=== PATIENT | male | born 1955 | race Two or more races ===

== ENCOUNTER 2021-02-16 13:01 | Inpatient (IN) | payer MEDICARE, OTHER ==
[~2021-02-16] VITALS: Ht 182.9 cm; Wt 104.0 kg
[2021-02-16] MEDS ORDERED: CHOLECALCIFEROL (VITD3) 2,000 UNIT CAP/TAB PO ONE (13:15)
[2021-02-16] MEDS ORDERED: ZINC SULFATE 220mg CAP or TAB PO ONE (13:15)
[2021-02-16] MEDS ORDERED: AZITHROMYCIN 500MG/ 250ML 250 ML IV ONE (13:15)
[2021-02-16] MEDS ORDERED: REMDESIVIR PER PHARMACY 0 ML IV SCH ×2 (13:15→20:00)
[2021-02-16] MEDS ORDERED: methylPREDNISolone SOD SUCC 125 MG/2 ML VL IV ONE (13:15)
[2021-02-16] MEDS ORDERED: ASCORBIC ACID 500 MG TAB PO ONE (13:15)
[2021-02-16 14:07] LABS: Basophils # (auto) 0 10 ^3/uL (0-0.2); Basophils % (auto) 0.6 % (0.0-2.0); Eosinophils # (auto) 0 10 ^3/uL (0-0.8); Hematocrit 41.8 % (41.0-53.0); Lymphocytes # (auto) 0.6 10 ^3/uL (0.4-5.4); Lymphocytes % (auto) 11.7 % (10.0-50.0); Mean Corpuscular Hemoglobin 32.6 pg (28.0-32.0); Mean Corpuscular Hgb Conc. 35.9 g/dL (32.0-36.0); Mean Corpuscular Volume 90.8 fL (80.0-100.0); Monocytes # (auto) 0.3 10 ^3/uL (0-1.3); Monocytes % (auto) 6.2 % (0.0-12.0); Neutrophils # (auto) 3.9 10 ^3/uL (1.6-8.6); Neutrophils % (auto) 81.5 % (37.0-80.0); Nucleated Red Blood Cells % 0.1 %; Red Cell Distribution Width 12.7 % (11.8-14.3); White Blood Cell 4.8 10^3/uL (4.4-10.8)
[2021-02-16 14:16] LABS: Albumin 3.3 g/dL (3.4-5.0); Calcium 8.4 mg/dL (8.5-10.1); Magnesium 2.7 mg/dL (1.6-2.6); Potassium 3.5 mmol/L (3.5-5.1)
[2021-02-16 14:22] LABS: BUN/Creatinine Ratio 16.8; Bilirubin, Total 0.6 mg/dL (0.2-1.0); CRP High Sensitivity 8.48 mg/dL (< 0.3); Total Protein 7.4 g/dL (6.4-8.2)
[2021-02-16] MEDS ORDERED: SODIUM CHLORIDE 0.9% 1,000 ML IV ONE ×2 (16:30→19:45)
[2021-02-16] MEDS ORDERED: NITROGLYCERIN 0.4 MG SL TAB SL PRN ×2 (17:45→20:00)
[2021-02-16] MEDS ORDERED: MORPHINE SULFATE INJECTION 2 MG/ML SYRG IV PRN ×3 (17:45→20:00)
[2021-02-16] MEDS ORDERED: AMLO-496 PO (18:12)
[2021-02-16] MEDS ORDERED: ASCO500T11 PO (18:12)
[2021-02-16] MEDS ORDERED: LISI-285 PO (18:12)
[2021-02-16] MEDS ORDERED: CHOL20007 PO (18:12)
[2021-02-16] MEDS ORDERED: ZINC220C8 PO (18:12)
[2021-02-16] MEDS ORDERED: ACETAMINOPHEN 325 MG TAB PO ONE ×2 (18:54→19:00)
[2021-02-16] MEDS ORDERED: hydrALAZINE HCL 20 MG/ML VL IV PRN (19:45)
[2021-02-16] MEDS ORDERED: ALBUMIN 25% 100 ML IV ONE (19:45)
[2021-02-16] MEDS ORDERED: FAMOTIDINE (10MG/ML) 2ML VL IV ONE (19:45)
[2021-02-16] MEDS ORDERED: METOCLOPRAMIDE HCL 5MG/ml INJ 2ml VIAL IV PRN (20:00)
[2021-02-16] MEDS ORDERED: DOCUSATE SOD 100 MG CAP PO PRN (20:00)
[2021-02-16] MEDS ORDERED: ALUM & MAG HYDROX-SIMETH LIQ(MAALOX) 30 ML PO PRN (20:00)
[2021-02-16 20:21] VITALS: BP 115/90
[2021-02-16 22:00] VITALS: BP 115/90
[2021-02-16] MEDS: BUDESONIDE (INHALATION) 180 MCG IH IN SCH (22:00)
[2021-02-16] MEDS: POTASSIUM CHL 20 Meq TABLET PO SCH (22:30)
[2021-02-16] MEDS: DOXYCYCLINE 100MG/250ML 250 ML IV SCH (22:30)
[2021-02-16] MEDS: ATORVASTATIN 20 MG TAB PO SCH (22:30)
[2021-02-16] MEDS: ENOXAPARIN SOD 40 MG/0.4 ML SYRINGE SC SCH (22:31)
[2021-02-16] MEDS: HYDROcodone-ACET 5/325MG TAB PO PRN (22:31)
[2021-02-17 00:11] LABS: Basophils # (auto) 0 10 ^3/uL (0-0.2); Basophils % (auto) 0.1 % (0.0-2.0); Eosinophils # (auto) 0 10 ^3/uL (0-0.8); Hematocrit 35.4 % (41.0-53.0); Hemoglobin 12.5 g/dL (13.5-17.5); Lymphocytes # (auto) 0.4 10 ^3/uL (0.4-5.4); Lymphocytes % (auto) 15.3 % (10.0-50.0); Mean Corpuscular Hemoglobin 32.3 pg (28.0-32.0); Mean Corpuscular Hgb Conc. 35.5 g/dL (32.0-36.0); Monocytes # (auto) 0.1 10 ^3/uL (0-1.3); Monocytes % (auto) 3.3 % (0.0-12.0); Neutrophils # (auto) 2.1 10 ^3/uL (1.6-8.6); Neutrophils % (auto) 81.3 % (37.0-80.0); Nucleated Red Blood Cells % 0.2 %; Red Blood Cells 3.89 10^6/uL (4.5-5.90); Red Cell Distribution Width 12.7 % (11.8-14.3); White Blood Cell 2.6 10^3/uL (4.4-10.8)
[2021-02-17 00:22] LABS: Albumin 3.4 g/dL (3.4-5.0); Calcium 7.9 mg/dL (8.5-10.1); Magnesium 2.8 mg/dL (1.6-2.6); Potassium 3.2 mmol/L (3.5-5.1)
[2021-02-17 00:26] LABS: Lactic Acid w/Reflex 2.8 mmol/L (0.4-2.0)
[2021-02-17 00:34] LABS: Thyroid Stimulating Hormone 0.63 uIU/mL (0.358-3.74)
[2021-02-17 01:17] LABS: BUN/Creatinine Ratio 20.2; Bilirubin, Total 0.6 mg/dL (0.2-1.0); CRP High Sensitivity 6.5 mg/dL (< 0.3); Total Protein 6.7 g/dL (6.4-8.2)
[2021-02-17 01:44] LABS: Triglycerides 90 mg/dL (< 150)
[2021-02-17 01:53] LABS: Cholesterol 105 mg/dL (< 200); HDL Cholesterol 27 mg/dL (40-59); LDL Cholesterol 54 mg/dL (< 100)
[2021-02-17 05:00] VITALS: BP 130/85
[2021-02-17] MEDS: FUROSEMIDE 20 MG/2 ML VIAL IV SCH ×2 (05:51→18:10)
[2021-02-17 06:16] LABS: Basophils # (auto) 0 10 ^3/uL (0-0.2); Basophils % (auto) 0.3 % (0.0-2.0); Eosinophils # (auto) 0 10 ^3/uL (0-0.8); Hematocrit 34.7 % (41.0-53.0); Hemoglobin 12.6 g/dL (13.5-17.5); Lymphocytes # (auto) 0.5 10 ^3/uL (0.4-5.4); Lymphocytes % (auto) 16.7 % (10.0-50.0); Mean Corpuscular Hemoglobin 32.8 pg (28.0-32.0); Mean Corpuscular Hgb Conc. 36.3 g/dL (32.0-36.0); Mean Corpuscular Volume 90.3 fL (80.0-100.0); Monocytes # (auto) 0.2 10 ^3/uL (0-1.3); Monocytes % (auto) 5.8 % (0.0-12.0); Neutrophils # (auto) 2.3 10 ^3/uL (1.6-8.6); Neutrophils % (auto) 77.2 % (37.0-80.0); Nucleated Red Blood Cells % 0.1 %; Red Blood Cells 3.84 10^6/uL (4.5-5.90); Red Cell Distribution Width 12.7 % (11.8-14.3)
[2021-02-17 06:30] LABS: INR 0.99 (0.9-1.15)
[2021-02-17 06:31] LABS: Potassium 3.4 mmol/L (3.5-5.1)
[2021-02-17 06:58] LABS: Albumin 3.2 g/dL (3.4-5.0); BUN/Creatinine Ratio 20.5; Bilirubin, Total 0.5 mg/dL (0.2-1.0); Magnesium 2.8 mg/dL (1.6-2.6); Phosphorus 2.7 mg/dL (2.5-4.90); Total Protein 6.6 g/dL (6.4-8.2); Uric Acid 5.7 mg/dL (3.5-7.2)
[2021-02-17] MEDS: BUDESONIDE (INHALATION) 180 MCG IH IN SCH ×2 (08:34→20:05)
[2021-02-17 08:39] VITALS: BP 112/77
[2021-02-17] MEDS: DexAMETHasone SOD PHOS 10MG/1ML VIAL INJ IV SCH (09:00)
[2021-02-17] MEDS: ZINC SULFATE 220mg CAP or TAB PO SCH (09:02)
[2021-02-17] MEDS: ASPirin 81 mg TAB PO SCH (09:02)
[2021-02-17] MEDS: DOXYCYCLINE 100MG/250ML 250 ML IV SCH ×2 (09:02→21:51)
[2021-02-17] MEDS: POTASSIUM CHL 20 Meq TABLET PO SCH ×2 (09:03→21:50)
[2021-02-17] MEDS: ENOXAPARIN SOD 40 MG/0.4 ML SYRINGE SC SCH ×2 (09:03→21:51)
[2021-02-17] MEDS: ASCORBIC ACID 1,000 MG TAB PO SCH (09:03)
[2021-02-17] MEDS: IVERMECTIN 3 MG TAB PO SCH (09:03)
[2021-02-17] MEDS: CHOLECALCIFEROL (VITD3) 2,000 UNIT CAP/TAB PO SCH (09:03)
[2021-02-17] MEDS: HYDROcodone-ACET 5/325MG TAB PO PRN ×3 (09:32→20:00)
[2021-02-17] MEDS ORDERED: FAMOTIDINE (10MG/ML) 2ML VL IV SCH (10:00)
[2021-02-17 12:47] VITALS: BP 118/76
[2021-02-17] MEDS ORDERED: MORPHINE SULFATE INJECTION 2 MG/ML SYRG IV PRN (14:30)
[2021-02-17] MEDS ORDERED: REMDESIVIR 200 MG in NS 210ml LOADING DOSE ADULT IV ONE (15:00)
[2021-02-17 16:53] VITALS: BP 117/77
[2021-02-17] MEDS: guaiFENesin-DM 100/10mg/5ml SYR PO PRN (20:01)
[2021-02-17] MEDS: ALBUTEROL SULF HFA 90MCG INH 200DOSE IN PRN (20:05)
[2021-02-17] MEDS: ATORVASTATIN 20 MG TAB PO SCH (21:51)
[2021-02-17 22:00] VITALS: BP 113/75
[2021-02-18 05:14] VITALS: BP 129/87
[2021-02-18] MEDS: FUROSEMIDE 20 MG/2 ML VIAL IV SCH ×2 (05:50→18:25)
[2021-02-18] MEDS: BUDESONIDE (INHALATION) 180 MCG IH IN SCH ×2 (06:30→21:01)
[2021-02-18] MEDS: ALBUTEROL SULF HFA 90MCG INH 200DOSE IN PRN ×2 (06:31→21:02)
[2021-02-18 06:52] LABS: Basophils # (auto) 0 10 ^3/uL (0-0.2); Basophils % (auto) 0.1 % (0.0-2.0); Eosinophils # (auto) 0 10 ^3/uL (0-0.8); Hematocrit 36.8 % (41.0-53.0); Hemoglobin 13.4 g/dL (13.5-17.5); Lymphocytes # (auto) 0.7 10 ^3/uL (0.4-5.4); Lymphocytes % (auto) 9.3 % (10.0-50.0); Mean Corpuscular Hemoglobin 32.9 pg (28.0-32.0); Mean Corpuscular Volume 90.1 fL (80.0-100.0); Monocytes # (auto) 0.4 10 ^3/uL (0-1.3); Monocytes % (auto) 4.8 % (0.0-12.0); Neutrophils # (auto) 6.9 10 ^3/uL (1.6-8.6); Neutrophils % (auto) 85.8 % (37.0-80.0); Red Blood Cells 4.08 10^6/uL (4.5-5.90); Red Cell Distribution Width 12.7 % (11.8-14.3)
[2021-02-18 07:04] LABS: Mean Corpuscular Hgb Conc. 36.5 g/dL (32.0-36.0)
[2021-02-18 07:16] LABS: Albumin 3.2 g/dL (3.4-5.0); Calcium 8.1 mg/dL (8.5-10.1); Potassium 3.6 mmol/L (3.5-5.1)
[2021-02-18 07:20] LABS: BUN/Creatinine Ratio 24.3; Bilirubin, Total 0.6 mg/dL (0.2-1.0); Total Protein 6.4 g/dL (6.4-8.2)
[2021-02-18] MEDS: HYDROcodone-ACET 5/325MG TAB PO PRN ×3 (07:42→21:08)
[2021-02-18 08:00] VITALS: BP 104/61
[2021-02-18] MEDS: DexAMETHasone SOD PHOS 10MG/1ML VIAL INJ IV SCH (10:02)
[2021-02-18] MEDS: DOXYCYCLINE 100MG/250ML 250 ML IV SCH ×2 (10:02→21:04)
[2021-02-18] MEDS: IVERMECTIN 3 MG TAB PO SCH (10:03)
[2021-02-18] MEDS: ASCORBIC ACID 1,000 MG TAB PO SCH (10:03)
[2021-02-18] MEDS: ZINC SULFATE 220mg CAP or TAB PO SCH (10:03)
[2021-02-18] MEDS: ASPirin 81 mg TAB PO SCH (10:03)
[2021-02-18] MEDS: POTASSIUM CHL 20 Meq TABLET PO SCH ×2 (10:03→21:05)
[2021-02-18] MEDS: CHOLECALCIFEROL (VITD3) 2,000 UNIT CAP/TAB PO SCH (10:04)
[2021-02-18] MEDS: ENOXAPARIN SOD 40 MG/0.4 ML SYRINGE SC SCH ×2 (10:04→21:05)
[2021-02-18 10:48] VITALS: BP 104/61
[2021-02-18 12:00] VITALS: BP 134/62
[2021-02-18] MEDS: guaiFENesin-DM 100/10mg/5ml SYR PO PRN (12:06)
[2021-02-18] MEDS ORDERED: THROAT LOZENGES(CEPASTAT) MT PRN (13:00)
[2021-02-18] MEDS: REMDESIVIR 100mg 100 MG in SODIUM CHL 0.9% 230 ML IV SCH (14:27)
[2021-02-18 16:00] VITALS: BP 122/88
[2021-02-18] MEDS: ATORVASTATIN 20 MG TAB PO SCH (21:05)
[2021-02-18 22:00] VITALS: BP 108/75
[2021-02-18] MEDS: LORazepam 0.5 MG TAB PO PRN (23:20)
[2021-02-19] MEDS: guaiFENesin-DM 100/10mg/5ml SYR PO PRN (02:55)
[2021-02-19 04:49] LABS: Alcohol, Urine < 3.0 mg/dL (0-10); Amphetamine Screen, Urine NEGATIVE (NEGATIVE); Barbiturate Scree,Urine NEGATIVE (NEGATIVE); Benzodiazephine Screen, Urine NEGATIVE (NEGATIVE); Cannabinoid Screen, Urine NEGATIVE (NEGATIVE); Cocaine Screen, Urine NEGATIVE (NEGATIVE); Opiate Scree,Urine POSITIVE (NEGATIVE); Phencyclidine Screen, Urine NEGATIVE (NEGATIVE)
[2021-02-19 05:00] VITALS: BP 117/80
[2021-02-19] MEDS: FUROSEMIDE 20 MG/2 ML VIAL IV SCH ×3 (05:17→17:49)
[2021-02-19 06:10] LABS: Urine Bacteria NONE SEEN /hpf (None Seen); Urine Blood Negative /uL (Negative); Urine Specific Gravity 1.016 (1.001-1.035); Urine WBC 1 /hpf (0 - 3)
[2021-02-19 06:54] LABS: Basophils # (auto) 0 10 ^3/uL (0-0.2); Basophils % (auto) 0.2 % (0.0-2.0); Eosinophils # (auto) 0 10 ^3/uL (0-0.8); Monocytes # (auto) 0.5 10 ^3/uL (0-1.3); White Blood Cell 8.3 10^3/uL (4.4-10.8)
[2021-02-19 06:58] LABS: Hematocrit 35.8 % (41.0-53.0); Hemoglobin 13.2 g/dL (13.5-17.5); Lymphocytes # (auto) 0.7 10 ^3/uL (0.4-5.4); Lymphocytes % (auto) 8.9 % (10.0-50.0); Mean Corpuscular Hemoglobin 33.2 pg (28.0-32.0); Mean Corpuscular Volume 90.3 fL (80.0-100.0); Neutrophils # (auto) 7.1 10 ^3/uL (1.6-8.6); Neutrophils % (auto) 84.9 % (37.0-80.0); Nucleated Red Blood Cells % 0.1 %; Red Blood Cells 3.97 10^6/uL (4.5-5.90); Red Cell Distribution Width 12.5 % (11.8-14.3)
[2021-02-19 06:59] LABS: Albumin 3.1 g/dL (3.4-5.0); BUN/Creatinine Ratio 26.3; Bilirubin, Total 0.6 mg/dL (0.2-1.0); Calcium 7.9 mg/dL (8.5-10.1); Total Protein 6.2 g/dL (6.4-8.2)
[2021-02-19 07:06] LABS: Mean Corpuscular Hgb Conc. 36.8 g/dL (32.0-36.0)
[2021-02-19] MEDS: BUDESONIDE (INHALATION) 180 MCG IH IN SCH ×2 (07:48→19:25)
[2021-02-19] MEDS: DexAMETHasone SOD PHOS 10MG/1ML VIAL INJ IV SCH (08:02)
[2021-02-19] MEDS: ASCORBIC ACID 1,000 MG TAB PO SCH (08:03)
[2021-02-19] MEDS: IVERMECTIN 3 MG TAB PO SCH (08:03)
[2021-02-19] MEDS: ZINC SULFATE 220mg CAP or TAB PO SCH (08:03)
[2021-02-19] MEDS: ASPirin 81 mg TAB PO SCH (08:03)
[2021-02-19] MEDS: DOXYCYCLINE 100MG/250ML 250 ML IV SCH ×2 (08:03→23:07)
[2021-02-19] MEDS: CHOLECALCIFEROL (VITD3) 2,000 UNIT CAP/TAB PO SCH (08:03)
[2021-02-19] MEDS: POTASSIUM CHL 20 Meq TABLET PO SCH ×2 (08:03→22:04)
[2021-02-19] MEDS: HYDROcodone-ACET 5/325MG TAB PO PRN ×2 (08:04→22:20)
[2021-02-19] MEDS: ENOXAPARIN SOD 40 MG/0.4 ML SYRINGE SC SCH ×2 (08:04→22:09)
[2021-02-19 08:46] VITALS: BP 123/78
[2021-02-19] MEDS ORDERED: PROPRANOLOL HCL 20 MG TAB PO ONE (11:45)
[2021-02-19 13:00] VITALS: BP 114/77
[2021-02-19] MEDS: Ensure HIGH Protein Chocolate 8oz Bottle PO SCH ×2 (13:14→17:49)
[2021-02-19 15:19] LABS: Hepatitis A Ab IgM Negative; Hepatitis B Core IgM Negative; Hepatitis C Antibody Negative (Negative)
[2021-02-19] MEDS: REMDESIVIR 100mg 100 MG in SODIUM CHL 0.9% 230 ML IV SCH (15:26)
[2021-02-19 17:00] VITALS: BP 101/70
[2021-02-19] MEDS: SALINE 0.65 % NASAL SPRAY 45ML BOTTLE EACHNOSTRI SCH ×2 (17:49→22:03)
[2021-02-19] MEDS: ALBUTEROL SULF HFA 90MCG INH 200DOSE IN PRN (19:25)
[2021-02-19 22:00] VITALS: BP 129/64
[2021-02-19] MEDS: PROPRANOLOL HCL 20 MG TAB PO SCH (22:03)
[2021-02-19] MEDS: ATORVASTATIN 20 MG TAB PO SCH (22:04)
[2021-02-19] MEDS: TEMAZEPAM 15 MG CAP PO PRN (23:41)
[2021-02-20 05:17] VITALS: BP 105/83
[2021-02-20 05:28] LABS: Basophils # (auto) 0 10 ^3/uL (0-0.2); Eosinophils # (auto) 0 10 ^3/uL (0-0.8); Hemoglobin 13.1 g/dL (13.5-17.5); Lymphocytes # (auto) 0.8 10 ^3/uL (0.4-5.4); Lymphocytes % (auto) 9.1 % (10.0-50.0); Mean Corpuscular Hemoglobin 32.5 pg (28.0-32.0); Mean Corpuscular Hgb Conc. 35.3 g/dL (32.0-36.0); Mean Corpuscular Volume 92.3 fL (80.0-100.0); Monocytes # (auto) 0.4 10 ^3/uL (0-1.3); Monocytes % (auto) 4.2 % (0.0-12.0); Neutrophils % (auto) 86.7 % (37.0-80.0); Nucleated Red Blood Cells % 0.1 %; Red Blood Cells 4.01 10^6/uL (4.5-5.90); Red Cell Distribution Width 12.6 % (11.8-14.3); White Blood Cell 9.2 10^3/uL (4.4-10.8)
[2021-02-20] MEDS: ALBUTEROL SULF HFA 90MCG INH 200DOSE IN PRN (05:48)
[2021-02-20] MEDS: BUDESONIDE (INHALATION) 180 MCG IH IN SCH ×2 (05:48→21:50)
[2021-02-20 05:52] LABS: Potassium 4.1 mmol/L (3.5-5.1)
[2021-02-20 06:02] LABS: Albumin 2.8 g/dL (3.4-5.0); BUN/Creatinine Ratio 29.3; Bilirubin, Total 0.7 mg/dL (0.2-1.0); Calcium 8.2 mg/dL (8.5-10.1); Total Protein 5.7 g/dL (6.4-8.2)
[2021-02-20] MEDS: SALINE 0.65 % NASAL SPRAY 45ML BOTTLE EACHNOSTRI SCH ×4 (06:14→21:59)
[2021-02-20] MEDS: FUROSEMIDE 20 MG/2 ML VIAL IV SCH ×2 (06:20→18:23)
[2021-02-20] MEDS: Ensure HIGH Protein Chocolate 8oz Bottle PO SCH ×3 (08:00→18:23)
[2021-02-20 08:52] VITALS: BP 125/86
[2021-02-20] MEDS: PROPRANOLOL HCL 20 MG TAB PO SCH ×2 (10:00→21:54)
[2021-02-20] MEDS ORDERED: AZITHROMYCIN 500MG/ 250ML 250 ML IV ONE (11:00)
[2021-02-20] MEDS ORDERED: ALBUMIN 25% 50 ML IV ONE (11:00)
[2021-02-20] MEDS: DexAMETHasone SOD PHOS 10MG/1ML VIAL INJ IV SCH (11:10)
[2021-02-20] MEDS: ASPirin 81 mg TAB PO SCH (11:10)
[2021-02-20] MEDS: ZINC SULFATE 220mg CAP or TAB PO SCH (11:10)
[2021-02-20] MEDS: IVERMECTIN 3 MG TAB PO SCH (11:11)
[2021-02-20] MEDS: POTASSIUM CHL 20 Meq TABLET PO SCH ×2 (11:11→21:59)
[2021-02-20] MEDS: CHOLECALCIFEROL (VITD3) 2,000 UNIT CAP/TAB PO SCH (11:12)
[2021-02-20] MEDS: ASCORBIC ACID 1,000 MG TAB PO SCH (11:12)
[2021-02-20] MEDS: ENOXAPARIN SOD 40 MG/0.4 ML SYRINGE SC SCH ×2 (11:13→22:00)
[2021-02-20 13:00] VITALS: BP 117/59
[2021-02-20] MEDS: REMDESIVIR 100mg 100 MG in SODIUM CHL 0.9% 230 ML IV SCH (15:35)
[2021-02-20 17:00] VITALS: BP 128/92
[2021-02-20] MEDS: ALBUMIN 25% 50 ML IV SCH (18:24)
[2021-02-20] MEDS: guaiFENesin-DM 100/10mg/5ml SYR PO PRN (19:54)
[2021-02-20 22:00] VITALS: BP 102/68
[2021-02-20] MEDS: TEMAZEPAM 15 MG CAP PO PRN (22:00)
[2021-02-20] MEDS: ATORVASTATIN 20 MG TAB PO SCH (22:00)
[2021-02-21] MEDS: ALBUMIN 25% 50 ML IV SCH ×2 (04:10→12:29)
[2021-02-21] MEDS: HYDROcodone-ACET 5/325MG TAB PO PRN (04:18)
[2021-02-21 05:00] VITALS: BP 127/82
[2021-02-21] MEDS: SALINE 0.65 % NASAL SPRAY 45ML BOTTLE EACHNOSTRI SCH ×4 (06:20→22:00)
[2021-02-21] MEDS: BUDESONIDE (INHALATION) 180 MCG IH IN SCH ×2 (06:25→22:00)
[2021-02-21] MEDS: ALBUTEROL SULF HFA 90MCG INH 200DOSE IN PRN (06:25)
[2021-02-21 06:26] LABS: Basophils # (auto) 0 10 ^3/uL (0-0.2); Basophils % (auto) 0.2 % (0.0-2.0); Eosinophils # (auto) 0 10 ^3/uL (0-0.8); Hematocrit 36.2 % (41.0-53.0); Hemoglobin 13.1 g/dL (13.5-17.5); Lymphocytes # (auto) 0.9 10 ^3/uL (0.4-5.4); Lymphocytes % (auto) 8.4 % (10.0-50.0); Mean Corpuscular Hemoglobin 32.9 pg (28.0-32.0); Mean Corpuscular Hgb Conc. 36.1 g/dL (32.0-36.0); Mean Corpuscular Volume 91.1 fL (80.0-100.0); Monocytes # (auto) 0.3 10 ^3/uL (0-1.3); Monocytes % (auto) 3.1 % (0.0-12.0); Neutrophils # (auto) 9.6 10 ^3/uL (1.6-8.6); Neutrophils % (auto) 88.3 % (37.0-80.0); Red Blood Cells 3.97 10^6/uL (4.5-5.90); Red Cell Distribution Width 13.1 % (11.8-14.3); White Blood Cell 10.9 10^3/uL (4.4-10.8)
[2021-02-21] MEDS: FUROSEMIDE 20 MG/2 ML VIAL IV SCH ×2 (06:29→17:34)
[2021-02-21 06:37] LABS: Potassium 3.7 mmol/L (3.5-5.1)
[2021-02-21 06:38] LABS: Albumin 3.4 g/dL (3.4-5.0); Calcium 8.5 mg/dL (8.5-10.1); INR 1.12 (0.9-1.15)
[2021-02-21 06:44] LABS: BUN/Creatinine Ratio 31.6; Bilirubin, Total 1.2 mg/dL (0.2-1.0); Total Protein 6.7 g/dL (6.4-8.2)
[2021-02-21 09:00] VITALS: BP 119/75
[2021-02-21] MEDS: ASPirin 81 mg TAB PO SCH (10:41)
[2021-02-21] MEDS: Ensure HIGH Protein Chocolate 8oz Bottle PO SCH ×3 (10:41→17:34)
[2021-02-21] MEDS: AZITHROMYCIN 500MG/ 250ML 250 ML IV SCH (10:41)
[2021-02-21] MEDS: ZINC SULFATE 220mg CAP or TAB PO SCH (10:42)
[2021-02-21] MEDS: PROPRANOLOL HCL 20 MG TAB PO SCH ×2 (10:42→22:30)
[2021-02-21] MEDS: DexAMETHasone SOD PHOS 10MG/1ML VIAL INJ IV SCH (10:42)
[2021-02-21] MEDS: POTASSIUM CHL 20 Meq TABLET PO SCH (10:42)
[2021-02-21] MEDS: ENOXAPARIN SOD 40 MG/0.4 ML SYRINGE SC SCH ×2 (10:43→22:00)
[2021-02-21] MEDS: IVERMECTIN 3 MG TAB PO SCH (10:43)
[2021-02-21] MEDS: ASCORBIC ACID 1,000 MG TAB PO SCH (10:43)
[2021-02-21] MEDS: CHOLECALCIFEROL (VITD3) 2,000 UNIT CAP/TAB PO SCH (10:43)
[2021-02-21] MEDS ORDERED: cefTRIAXone 1GM/50ML D5W 50 ML IV ONE (12:15)
[2021-02-21 13:00] VITALS: BP 119/72
[2021-02-21] MEDS: REMDESIVIR 100mg 100 MG in SODIUM CHL 0.9% 230 ML IV SCH (15:26)
[2021-02-21 17:00] VITALS: BP 104/61
[2021-02-21 20:00] VITALS: BP 130/81
[2021-02-21 22:00] VITALS: BP 130/85
[2021-02-21] MEDS: ATORVASTATIN 20 MG TAB PO SCH (22:00)
[2021-02-21] MEDS: TEMAZEPAM 15 MG CAP PO PRN (22:37)
[2021-02-22] MEDS: HYDROcodone-ACET 5/325MG TAB PO PRN ×3 (01:51→16:47)
[2021-02-22] MEDS: ALBUTEROL SULF HFA 90MCG INH 200DOSE IN PRN ×3 (04:49→21:44)
[2021-02-22 05:00] VITALS: BP 131/76
[2021-02-22] MEDS: SALINE 0.65 % NASAL SPRAY 45ML BOTTLE EACHNOSTRI SCH ×4 (05:54→22:31)
[2021-02-22] MEDS: FUROSEMIDE 20 MG/2 ML VIAL IV SCH ×2 (05:56→16:57)
[2021-02-22] MEDS: BUDESONIDE (INHALATION) 180 MCG IH IN SCH ×2 (06:03→21:43)
[2021-02-22 06:56] LABS: Basophils # (auto) 0.1 10 ^3/uL (0-0.2); Basophils % (auto) 0.3 % (0.0-2.0); Eosinophils # (auto) 0.1 10 ^3/uL (0-0.8); Eosinophils % (auto) 0.4 % (0.0-7.0); Hematocrit 39.4 % (41.0-53.0); Hemoglobin 13.7 g/dL (13.5-17.5); Lymphocytes # (auto) 0.9 10 ^3/uL (0.4-5.4); Lymphocytes % (auto) 5.3 % (10.0-50.0); Mean Corpuscular Hemoglobin 32.4 pg (28.0-32.0); Mean Corpuscular Hgb Conc. 34.6 g/dL (32.0-36.0); Mean Corpuscular Volume 93.5 fL (80.0-100.0); Monocytes # (auto) 0.4 10 ^3/uL (0-1.3); Monocytes % (auto) 2.4 % (0.0-12.0); Neutrophils # (auto) 16.2 10 ^3/uL (1.6-8.6); Neutrophils % (auto) 91.6 % (37.0-80.0); Red Blood Cells 4.21 10^6/uL (4.5-5.90); Red Cell Distribution Width 12.9 % (11.8-14.3); White Blood Cell 17.7 10^3/uL (4.4-10.8)
[2021-02-22 07:09] LABS: INR 1.06 (0.9-1.15); Partial Thromboplastin Time 27.8 sec (23.6-33.0)
[2021-02-22 07:39] LABS: Albumin 3.2 g/dL (3.4-5.0); BUN/Creatinine Ratio 34.6; Bilirubin, Total 1.2 mg/dL (0.2-1.0); Calcium 8.6 mg/dL (8.5-10.1); Phosphorus 3.3 mg/dL (2.5-4.90); Potassium 4.4 mmol/L (3.5-5.1); Total Protein 7.2 g/dL (6.4-8.2)
[2021-02-22 07:40] LABS: Magnesium 2.5 mg/dL (1.6-2.6)
[2021-02-22 09:00] VITALS: BP 124/74
[2021-02-22] MEDS: cefTRIAXone 1GM/50ML D5W 50 ML IV SCH (09:47)
[2021-02-22] MEDS: Ensure HIGH Protein Chocolate 8oz Bottle PO SCH ×3 (09:47→17:32)
[2021-02-22] MEDS: DexAMETHasone SOD PHOS 10MG/1ML VIAL INJ IV SCH (09:47)
[2021-02-22] MEDS: ASPirin 81 mg TAB PO SCH (09:48)
[2021-02-22] MEDS: ASCORBIC ACID 1,000 MG TAB PO SCH (09:48)
[2021-02-22] MEDS: PROPRANOLOL HCL 20 MG TAB PO SCH ×2 (09:48→22:35)
[2021-02-22] MEDS: ZINC SULFATE 220mg CAP or TAB PO SCH (09:48)
[2021-02-22] MEDS: CHOLECALCIFEROL (VITD3) 2,000 UNIT CAP/TAB PO SCH (09:49)
[2021-02-22] MEDS: ENOXAPARIN SOD 40 MG/0.4 ML SYRINGE SC SCH ×2 (09:49→22:31)
[2021-02-22] MEDS: AZITHROMYCIN 500MG/ 250ML 250 ML IV SCH (10:37)
[2021-02-22 13:00] VITALS: BP 118/61
[2021-02-22 17:00] VITALS: BP 127/79
[2021-02-22 20:00] VITALS: BP 113/41
[2021-02-22 22:00] VITALS: BP 113/41
[2021-02-22] MEDS: ATORVASTATIN 20 MG TAB PO SCH (22:31)
[2021-02-23] MEDS: HYDROcodone-ACET 5/325MG TAB PO PRN ×3 (03:11→20:35)
[2021-02-23 05:00] VITALS: BP 121/84
[2021-02-23] MEDS: SALINE 0.65 % NASAL SPRAY 45ML BOTTLE EACHNOSTRI SCH ×4 (05:48→21:46)
[2021-02-23] MEDS: FUROSEMIDE 20 MG/2 ML VIAL IV SCH ×2 (05:52→18:50)
[2021-02-23 05:57] LABS: Basophils # (auto) 0 10 ^3/uL (0-0.2); Basophils % (auto) 0.2 % (0.0-2.0); Eosinophils # (auto) 0 10 ^3/uL (0-0.8); Eosinophils % (auto) 0.1 % (0.0-7.0); Hematocrit 37.6 % (41.0-53.0); Hemoglobin 13.1 g/dL (13.5-17.5); Lymphocytes # (auto) 0.7 10 ^3/uL (0.4-5.4); Lymphocytes % (auto) 5.1 % (10.0-50.0); Mean Corpuscular Hemoglobin 32.3 pg (28.0-32.0); Mean Corpuscular Volume 92.3 fL (80.0-100.0); Monocytes # (auto) 0.4 10 ^3/uL (0-1.3); Neutrophils # (auto) 11.8 10 ^3/uL (1.6-8.6); Neutrophils % (auto) 91.6 % (37.0-80.0); Nucleated Red Blood Cells % 0.1 %; Red Blood Cells 4.07 10^6/uL (4.5-5.90); Red Cell Distribution Width 12.9 % (11.8-14.3); White Blood Cell 12.9 10^3/uL (4.4-10.8)
[2021-02-23] MEDS: BUDESONIDE (INHALATION) 180 MCG IH IN SCH ×2 (06:08→20:38)
[2021-02-23] MEDS: ALBUTEROL SULF HFA 90MCG INH 200DOSE IN PRN ×2 (06:08→20:38)
[2021-02-23 06:12] LABS: INR 1.14 (0.9-1.15); Partial Thromboplastin Time 27.1 sec (23.6-33.0)
[2021-02-23 06:18] LABS: Albumin 3.2 g/dL (3.4-5.0); Calcium 8.5 mg/dL (8.5-10.1); Magnesium 3.7 mg/dL (1.6-2.6); Potassium 4.6 mmol/L (3.5-5.1)
[2021-02-23 06:22] LABS: BUN/Creatinine Ratio 42.5; Bilirubin, Total 0.9 mg/dL (0.2-1.0); Total Protein 6.7 g/dL (6.4-8.2)
[2021-02-23] MEDS: Ensure HIGH Protein Chocolate 8oz Bottle PO SCH ×3 (08:00→18:00)
[2021-02-23 09:00] VITALS: BP 116/68
[2021-02-23] MEDS: cefTRIAXone 1GM/50ML D5W 50 ML IV SCH (10:22)
[2021-02-23] MEDS: ASCORBIC ACID 1,000 MG TAB PO SCH (10:23)
[2021-02-23] MEDS: ASPirin 81 mg TAB PO SCH (10:23)
[2021-02-23] MEDS: AZITHROMYCIN 500MG/ 250ML 250 ML IV SCH (10:23)
[2021-02-23] MEDS: ZINC SULFATE 220mg CAP or TAB PO SCH (10:23)
[2021-02-23] MEDS: DexAMETHasone SOD PHOS 10MG/1ML VIAL INJ IV SCH (10:23)
[2021-02-23] MEDS: ENOXAPARIN SOD 40 MG/0.4 ML SYRINGE SC SCH ×2 (10:24→21:48)
[2021-02-23] MEDS: CHOLECALCIFEROL (VITD3) 2,000 UNIT CAP/TAB PO SCH (10:24)
[2021-02-23] MEDS: PROPRANOLOL HCL 20 MG TAB PO SCH ×2 (10:45→21:47)
[2021-02-23] MEDS: ACETAMINOPHEN 325 MG TAB PO PRN (12:10)
[2021-02-23] MEDS ORDERED: ENOXAPARIN SOD 40 MG/0.4 ML SYRINGE SC ONE (12:15)
[2021-02-23 17:00] VITALS: BP 135/63
[2021-02-23 20:36] VITALS: BP 114/62
[2021-02-23] MEDS: ATORVASTATIN 20 MG TAB PO SCH (21:47)
[2021-02-24 05:08] VITALS: BP 109/72
[2021-02-24] MEDS: FUROSEMIDE 20 MG/2 ML VIAL IV SCH ×2 (05:31→18:30)
[2021-02-24] MEDS: SALINE 0.65 % NASAL SPRAY 45ML BOTTLE EACHNOSTRI SCH ×4 (05:32→22:17)
[2021-02-24 05:47] LABS: Basophils # (auto) 0 10 ^3/uL (0-0.2); Basophils % (auto) 0.2 % (0.0-2.0); Eosinophils # (auto) 0 10 ^3/uL (0-0.8); Eosinophils % (auto) 0.1 % (0.0-7.0); Lymphocytes # (auto) 0.6 10 ^3/uL (0.4-5.4); Lymphocytes % (auto) 5.1 % (10.0-50.0); Mean Corpuscular Hemoglobin 32.9 pg (28.0-32.0); Mean Corpuscular Hgb Conc. 35.8 g/dL (32.0-36.0); Monocytes # (auto) 0.3 10 ^3/uL (0-1.3); Monocytes % (auto) 2.6 % (0.0-12.0); Neutrophils # (auto) 11.4 10 ^3/uL (1.6-8.6); Red Blood Cells 4.24 10^6/uL (4.5-5.90); Red Cell Distribution Width 12.8 % (11.8-14.3); White Blood Cell 12.4 10^3/uL (4.4-10.8)
[2021-02-24 06:04] LABS: Albumin 3.1 g/dL (3.4-5.0); Calcium 8.5 mg/dL (8.5-10.1); Magnesium 3.8 mg/dL (1.6-2.6); Potassium 4.4 mmol/L (3.5-5.1)
[2021-02-24 06:12] LABS: BUN/Creatinine Ratio 43.7; Bilirubin, Total 0.8 mg/dL (0.2-1.0); CRP High Sensitivity 4.21 mg/dL (< 0.3); Total Protein 6.6 g/dL (6.4-8.2)
[2021-02-24] MEDS: ALBUTEROL SULF HFA 90MCG INH 200DOSE IN PRN ×2 (06:19→23:34)
[2021-02-24] MEDS: BUDESONIDE (INHALATION) 180 MCG IH IN SCH ×2 (06:19→22:15)
[2021-02-24] MEDS: Ensure HIGH Protein Chocolate 8oz Bottle PO SCH ×3 (08:00→18:00)
[2021-02-24 08:30] VITALS: BP 99/54
[2021-02-24] MEDS: DexAMETHasone SOD PHOS 10MG/1ML VIAL INJ IV SCH (09:46)
[2021-02-24] MEDS: cefTRIAXone 1GM/50ML D5W 50 ML IV SCH (09:46)
[2021-02-24] MEDS: ASPirin 81 mg TAB PO SCH (09:47)
[2021-02-24] MEDS: ASCORBIC ACID 1,000 MG TAB PO SCH (09:47)
[2021-02-24] MEDS: ZINC SULFATE 220mg CAP or TAB PO SCH (09:47)
[2021-02-24] MEDS: AZITHROMYCIN 500MG/ 250ML 250 ML IV SCH (09:47)
[2021-02-24] MEDS: PROPRANOLOL HCL 20 MG TAB PO SCH ×2 (09:47→22:17)
[2021-02-24] MEDS: CHOLECALCIFEROL (VITD3) 2,000 UNIT CAP/TAB PO SCH (09:48)
[2021-02-24] MEDS: ENOXAPARIN SOD 40 MG/0.4 ML SYRINGE SC SCH ×2 (09:54→22:16)
[2021-02-24 12:30] VITALS: BP 134/88
[2021-02-24 17:00] VITALS: BP 134/63
[2021-02-24 22:00] VITALS: BP 106/64
[2021-02-25] MEDS: HYDROcodone-ACET 5/325MG TAB PO PRN ×3 (00:11→17:11)
[2021-02-25 05:00] VITALS: BP 109/67
[2021-02-25] MEDS: BUDESONIDE (INHALATION) 180 MCG IH IN SCH ×2 (06:11→18:53)
[2021-02-25] MEDS: FUROSEMIDE 20 MG/2 ML VIAL IV SCH ×2 (06:28→17:12)
[2021-02-25] MEDS: SALINE 0.65 % NASAL SPRAY 45ML BOTTLE EACHNOSTRI SCH ×4 (06:32→22:19)
[2021-02-25] MEDS: DexAMETHasone SOD PHOS 10MG/1ML VIAL INJ IV SCH (08:51)
[2021-02-25] MEDS: ASPirin 81 mg TAB PO SCH (08:51)
[2021-02-25] MEDS: cefTRIAXone 1GM/50ML D5W 50 ML IV SCH (08:51)
[2021-02-25] MEDS: Ensure HIGH Protein Chocolate 8oz Bottle PO SCH ×3 (08:51→18:24)
[2021-02-25] MEDS: ASCORBIC ACID 1,000 MG TAB PO SCH (08:52)
[2021-02-25] MEDS: ZINC SULFATE 220mg CAP or TAB PO SCH (08:52)
[2021-02-25] MEDS: PROPRANOLOL HCL 20 MG TAB PO SCH ×2 (08:52→22:20)
[2021-02-25] MEDS: FLORASTOR (S. BOULARDII) 250 MG CAP PO SCH (08:52)
[2021-02-25] MEDS: ENOXAPARIN SOD 40 MG/0.4 ML SYRINGE SC SCH ×2 (08:53→22:20)
[2021-02-25] MEDS: CHOLECALCIFEROL (VITD3) 2,000 UNIT CAP/TAB PO SCH (08:53)
[2021-02-25 09:00] VITALS: BP 105/69
[2021-02-25] MEDS: AZITHROMYCIN 500MG/ 250ML 250 ML IV SCH (10:30)
[2021-02-25 13:00] VITALS: BP 91/55
[2021-02-25 16:37] VITALS: BP 110/66
[2021-02-25] MEDS: ALBUTEROL SULF HFA 90MCG INH 200DOSE IN PRN (20:22)
[2021-02-26] MEDS: HYDROcodone-ACET 5/325MG TAB PO PRN ×4 (02:58→21:27)
[2021-02-26] MEDS: SALINE 0.65 % NASAL SPRAY 45ML BOTTLE EACHNOSTRI SCH ×4 (06:00→21:26)
[2021-02-26] MEDS: BUDESONIDE (INHALATION) 180 MCG IH IN SCH ×2 (06:20→18:49)
[2021-02-26 06:25] LABS: Potassium 4.2 mmol/L (3.5-5.1)
[2021-02-26] MEDS: FUROSEMIDE 20 MG/2 ML VIAL IV SCH (06:33)
[2021-02-26 06:34] LABS: Albumin 2.6 g/dL (3.4-5.0); Calcium 8.5 mg/dL (8.5-10.1); Magnesium 2.7 mg/dL (1.6-2.6)
[2021-02-26 06:37] LABS: Bilirubin, Total 0.8 mg/dL (0.2-1.0); Total Protein 6.3 g/dL (6.4-8.2)
[2021-02-26 06:53] LABS: CRP High Sensitivity 11.9 mg/dL (< 0.3)
[2021-02-26] MEDS: ASPirin 81 mg TAB PO SCH (08:14)
[2021-02-26] MEDS: cefTRIAXone 1GM/50ML D5W 50 ML IV SCH (08:14)
[2021-02-26] MEDS: DexAMETHasone SOD PHOS 10MG/1ML VIAL INJ IV SCH (08:14)
[2021-02-26] MEDS: ENOXAPARIN SOD 40 MG/0.4 ML SYRINGE SC SCH ×2 (08:15→21:26)
[2021-02-26] MEDS: FLORASTOR (S. BOULARDII) 250 MG CAP PO SCH (08:15)
[2021-02-26] MEDS: ZINC SULFATE 220mg CAP or TAB PO SCH (08:15)
[2021-02-26] MEDS: CHOLECALCIFEROL (VITD3) 2,000 UNIT CAP/TAB PO SCH (08:15)
[2021-02-26] MEDS: ASCORBIC ACID 1,000 MG TAB PO SCH (08:15)
[2021-02-26] MEDS: ALBUTEROL SULF HFA 90MCG INH 200DOSE IN PRN ×2 (08:34→20:49)
[2021-02-26] MEDS: Ensure HIGH Protein Chocolate 8oz Bottle PO SCH ×3 (08:35→17:26)
[2021-02-26 09:00] VITALS: BP 110/72
[2021-02-26] MEDS: AZITHROMYCIN 500MG/ 250ML 250 ML IV SCH (10:47)
[2021-02-26] MEDS: PROPRANOLOL HCL 20 MG TAB PO SCH ×2 (10:48→21:27)
[2021-02-26 13:00] VITALS: BP 100/65
[2021-02-26 17:00] VITALS: BP 100/65
[2021-02-26 23:19] VITALS: BP 99/56
[2021-02-27] MEDS: HYDROcodone-ACET 5/325MG TAB PO PRN ×5 (03:19→22:17)
[2021-02-27 05:15] VITALS: BP 98/74
[2021-02-27] MEDS: BUDESONIDE (INHALATION) 180 MCG IH IN SCH ×2 (05:37→22:03)
[2021-02-27] MEDS: ALBUTEROL SULF HFA 90MCG INH 200DOSE IN PRN (05:37)
[2021-02-27] MEDS: SALINE 0.65 % NASAL SPRAY 45ML BOTTLE EACHNOSTRI SCH ×4 (05:40→22:14)
[2021-02-27] MEDS: ASPirin 81 mg TAB PO SCH (07:40)
[2021-02-27] MEDS: ASCORBIC ACID 1,000 MG TAB PO SCH (07:40)
[2021-02-27] MEDS: CHOLECALCIFEROL (VITD3) 2,000 UNIT CAP/TAB PO SCH (07:40)
[2021-02-27] MEDS: ENOXAPARIN SOD 40 MG/0.4 ML SYRINGE SC SCH ×2 (07:40→22:15)
[2021-02-27] MEDS: FUROSEMIDE 20 MG/2 ML VIAL IV SCH (07:40)
[2021-02-27] MEDS: cefTRIAXone 1GM/50ML D5W 50 ML IV SCH (07:40)
[2021-02-27] MEDS: Ensure HIGH Protein Chocolate 8oz Bottle PO SCH ×3 (07:41→18:01)
[2021-02-27] MEDS: DexAMETHasone SOD PHOS 10MG/1ML VIAL INJ IV SCH (07:41)
[2021-02-27] MEDS: ZINC SULFATE 220mg CAP or TAB PO SCH (07:41)
[2021-02-27] MEDS: PROPRANOLOL HCL 20 MG TAB PO SCH ×2 (07:41→22:15)
[2021-02-27] MEDS: FLORASTOR (S. BOULARDII) 250 MG CAP PO SCH (07:41)
[2021-02-27 08:27] VITALS: BP 120/72
[2021-02-27] MEDS: ACETAMINOPHEN 325 MG TAB PO PRN (11:08)
[2021-02-27 11:47] VITALS: BP 109/53
[2021-02-27 16:47] VITALS: BP 100/56
[2021-02-27 22:00] VITALS: BP 107/66
[2021-02-28] MEDS: HYDROcodone-ACET 5/325MG TAB PO PRN ×4 (03:52→22:12)
[2021-02-28 05:00] VITALS: BP 121/48
[2021-02-28 05:07] LABS: Basophils # (auto) 0 10 ^3/uL (0-0.2); Basophils % (auto) 0.2 % (0.0-2.0); Eosinophils # (auto) 0.1 10 ^3/uL (0-0.8); Eosinophils % (auto) 0.4 % (0.0-7.0); Hematocrit 39.1 % (41.0-53.0); Hemoglobin 13.4 g/dL (13.5-17.5); Lymphocytes # (auto) 0.8 10 ^3/uL (0.4-5.4); Mean Corpuscular Hemoglobin 31.6 pg (28.0-32.0); Mean Corpuscular Hgb Conc. 34.4 g/dL (32.0-36.0); Mean Corpuscular Volume 92.1 fL (80.0-100.0); Monocytes # (auto) 0.4 10 ^3/uL (0-1.3); Monocytes % (auto) 2.4 % (0.0-12.0); Neutrophils # (auto) 14.4 10 ^3/uL (1.6-8.6); Red Blood Cells 4.24 10^6/uL (4.5-5.90); Red Cell Distribution Width 13.1 % (11.8-14.3); White Blood Cell 15.6 10^3/uL (4.4-10.8)
[2021-02-28 05:27] LABS: Calcium 8.2 mg/dL (8.5-10.1); Potassium 4.6 mmol/L (3.5-5.1)
[2021-02-28 05:29] LABS: BUN/Creatinine Ratio 46.7
[2021-02-28] MEDS: SALINE 0.65 % NASAL SPRAY 45ML BOTTLE EACHNOSTRI SCH ×4 (06:52→22:03)
[2021-02-28] MEDS: Ensure HIGH Protein Chocolate 8oz Bottle PO SCH ×3 (07:55→17:28)
[2021-02-28] MEDS: CHOLECALCIFEROL (VITD3) 2,000 UNIT CAP/TAB PO SCH (08:38)
[2021-02-28] MEDS: FUROSEMIDE 20 MG/2 ML VIAL IV SCH (08:38)
[2021-02-28] MEDS: cefTRIAXone 1GM/50ML D5W 50 ML IV SCH (08:38)
[2021-02-28] MEDS: DexAMETHasone SOD PHOS 10MG/1ML VIAL INJ IV SCH (08:39)
[2021-02-28] MEDS: FLORASTOR (S. BOULARDII) 250 MG CAP PO SCH (08:39)
[2021-02-28] MEDS: ZINC SULFATE 220mg CAP or TAB PO SCH (08:39)
[2021-02-28] MEDS: ASPirin 81 mg TAB PO SCH (08:39)
[2021-02-28] MEDS: PROPRANOLOL HCL 20 MG TAB PO SCH ×2 (08:39→22:04)
[2021-02-28] MEDS: ASCORBIC ACID 1,000 MG TAB PO SCH (08:39)
[2021-02-28] MEDS: ENOXAPARIN SOD 40 MG/0.4 ML SYRINGE SC SCH ×2 (08:40→22:04)
[2021-02-28 09:00] VITALS: BP 109/71
[2021-02-28] MEDS: BUDESONIDE (INHALATION) 180 MCG IH IN SCH ×2 (09:27→20:37)
[2021-02-28] MEDS: ALBUTEROL SULF HFA 90MCG INH 200DOSE IN PRN ×2 (09:27→20:37)
[2021-02-28 13:00] VITALS: BP 105/43
[2021-02-28 17:00] VITALS: BP 103/54
[2021-02-28 20:00] VITALS: BP 127/68
[2021-02-28 22:00] VITALS: BP 127/68
[2021-03-01] MEDS: HYDROcodone-ACET 5/325MG TAB PO PRN ×4 (04:18→23:39)
[2021-03-01 05:00] VITALS: BP 150/63
[2021-03-01] MEDS: SALINE 0.65 % NASAL SPRAY 45ML BOTTLE EACHNOSTRI SCH ×4 (06:04→22:26)
[2021-03-01 09:00] VITALS: BP 124/76
[2021-03-01] MEDS: ALBUTEROL SULF HFA 90MCG INH 200DOSE IN PRN (09:11)
[2021-03-01] MEDS: BUDESONIDE (INHALATION) 180 MCG IH IN SCH ×2 (09:11→22:09)
[2021-03-01] MEDS: cefTRIAXone 1GM/50ML D5W 50 ML IV SCH (10:19)
[2021-03-01] MEDS: Ensure HIGH Protein Chocolate 8oz Bottle PO SCH ×3 (10:19→17:48)
[2021-03-01] MEDS: FUROSEMIDE 20 MG/2 ML VIAL IV SCH (10:20)
[2021-03-01] MEDS: ASPirin 81 mg TAB PO SCH (10:20)
[2021-03-01] MEDS: FLORASTOR (S. BOULARDII) 250 MG CAP PO SCH (10:20)
[2021-03-01] MEDS: DexAMETHasone SOD PHOS 10MG/1ML VIAL INJ IV SCH (10:20)
[2021-03-01] MEDS: ZINC SULFATE 220mg CAP or TAB PO SCH (10:20)
[2021-03-01] MEDS: CHOLECALCIFEROL (VITD3) 2,000 UNIT CAP/TAB PO SCH (10:21)
[2021-03-01] MEDS: ENOXAPARIN SOD 40 MG/0.4 ML SYRINGE SC SCH ×2 (10:21→22:27)
[2021-03-01] MEDS: PROPRANOLOL HCL 20 MG TAB PO SCH ×2 (10:21→22:27)
[2021-03-01] MEDS: ASCORBIC ACID 1,000 MG TAB PO SCH (10:21)
[2021-03-01 13:00] VITALS: BP 96/68
[2021-03-01] MEDS: PIPERACILLIN-TAZOB 3.375GM 100 ML IV SCH ×3 (13:09→23:39)
[2021-03-01 17:00] VITALS: BP 105/70
[2021-03-01 22:00] VITALS: BP 107/69
[2021-03-02 05:00] VITALS: BP 125/71
[2021-03-02] MEDS: SALINE 0.65 % NASAL SPRAY 45ML BOTTLE EACHNOSTRI SCH ×4 (05:49→21:55)
[2021-03-02] MEDS: PIPERACILLIN-TAZOB 3.375GM 100 ML IV SCH ×3 (05:50→17:35)
[2021-03-02] MEDS: ALBUTEROL SULF HFA 90MCG INH 200DOSE IN PRN ×2 (05:52→22:27)
[2021-03-02] MEDS: BUDESONIDE (INHALATION) 180 MCG IH IN SCH ×2 (05:52→22:27)
[2021-03-02] MEDS: Ensure HIGH Protein Chocolate 8oz Bottle PO SCH ×3 (08:46→17:38)
[2021-03-02 09:00] VITALS: BP 106/82
[2021-03-02] MEDS: HYDROcodone-ACET 5/325MG TAB PO PRN ×3 (10:11→22:36)
[2021-03-02] MEDS: LORazepam 0.5 MG TAB PO PRN ×2 (10:11→17:35)
[2021-03-02] MEDS: DexAMETHasone SOD PHOS 10MG/1ML VIAL INJ IV SCH (10:12)
[2021-03-02] MEDS: ASPirin 81 mg TAB PO SCH (10:15)
[2021-03-02] MEDS: FLORASTOR (S. BOULARDII) 250 MG CAP PO SCH (10:15)
[2021-03-02] MEDS: ZINC SULFATE 220mg CAP or TAB PO SCH (10:15)
[2021-03-02] MEDS: FUROSEMIDE 20 MG/2 ML VIAL IV SCH (10:15)
[2021-03-02] MEDS: PROPRANOLOL HCL 20 MG TAB PO SCH ×2 (10:16→22:29)
[2021-03-02] MEDS: ENOXAPARIN SOD 40 MG/0.4 ML SYRINGE SC SCH ×2 (10:16→22:29)
[2021-03-02] MEDS: CHOLECALCIFEROL (VITD3) 2,000 UNIT CAP/TAB PO SCH (10:16)
[2021-03-02] MEDS: ASCORBIC ACID 1,000 MG TAB PO SCH (10:16)
[2021-03-02 13:00] VITALS: BP 123/77
[2021-03-02 17:00] VITALS: BP 131/94
[2021-03-02 22:00] VITALS: BP 136/90
[2021-03-03] VITALS (36 sets, daily range): BP systolic 93–141; BP diastolic 42–93
[2021-03-03] MEDS: PIPERACILLIN-TAZOB 3.375GM 100 ML IV SCH ×4 (00:22→17:57)
[2021-03-03] MEDS: LORazepam 0.5 MG TAB PO PRN (00:22)
[2021-03-03] MEDS: SALINE 0.65 % NASAL SPRAY 45ML BOTTLE EACHNOSTRI SCH ×4 (04:59→22:00)
[2021-03-03] MEDS: ALBUTEROL SULF HFA 90MCG INH 200DOSE IN PRN (07:43)
[2021-03-03] MEDS: BUDESONIDE (INHALATION) 180 MCG IH IN SCH (07:44)
[2021-03-03] MEDS: Ensure HIGH Protein Chocolate 8oz Bottle PO SCH ×3 (08:00→18:00)
[2021-03-03] MEDS ORDERED: MIDAZOLAM HCL 5 MG/ML-1ML VIAL ONE (09:02)
[2021-03-03] MEDS ORDERED: NOREPINEPHRINE 8 MG/250ML KIT 250 ML IV ONE ×2 (09:47→10:20)
[2021-03-03] MEDS ORDERED: MIDAZOLAM DRIP 50 mg/50mL 50 ML IV ONE ×3 (09:47→12:44)
[2021-03-03 10:34] LABS: Basophils # (auto) 0.1 10 ^3/uL (0-0.2); Basophils % (auto) 0.4 % (0.0-2.0); Eosinophils # (auto) 0 10 ^3/uL (0-0.8); Hematocrit 46.2 % (41.0-53.0); Lymphocytes # (auto) 0.7 10 ^3/uL (0.4-5.4); Lymphocytes % (auto) 2.9 % (10.0-50.0); Mean Corpuscular Hemoglobin 32.3 pg (28.0-32.0); Mean Corpuscular Hgb Conc. 34.5 g/dL (32.0-36.0); Mean Corpuscular Volume 93.6 fL (80.0-100.0); Monocytes # (auto) 0.2 10 ^3/uL (0-1.3); Monocytes % (auto) 0.9 % (0.0-12.0); Neutrophils # (auto) 21.1 10 ^3/uL (1.6-8.6); Neutrophils % (auto) 95.8 % (37.0-80.0); Red Blood Cells 4.94 10^6/uL (4.5-5.90); Red Cell Distribution Width 13.3 % (11.8-14.3); White Blood Cell 22.1 10^3/uL (4.4-10.8)
[2021-03-03 11:00] LABS: Potassium 4.6 mmol/L (3.5-5.1)
[2021-03-03 11:17] LABS: Albumin 2.8 g/dL (3.4-5.0); BUN/Creatinine Ratio 42.5; Bilirubin, Total 1.3 mg/dL (0.2-1.0); CRP High Sensitivity 8.67 mg/dL (< 0.3); Calcium 8.7 mg/dL (8.5-10.1); Total Protein 6.9 g/dL (6.4-8.2)
[2021-03-03] MEDS: DexAMETHasone SOD PHOS 10MG/1ML VIAL INJ IV SCH (12:51)
[2021-03-03] MEDS: FUROSEMIDE 20 MG/2 ML VIAL IV SCH (12:54)
[2021-03-03] MEDS: ASPirin 81 mg TAB PO SCH (12:54)
[2021-03-03] MEDS: FLORASTOR (S. BOULARDII) 250 MG CAP PO SCH (12:55)
[2021-03-03] MEDS: ZINC SULFATE 220mg CAP or TAB PO SCH (12:55)
[2021-03-03] MEDS: PROPRANOLOL HCL 20 MG TAB PO SCH ×2 (12:56→22:00)
[2021-03-03] MEDS: ASCORBIC ACID 1,000 MG TAB PO SCH (12:56)
[2021-03-03] MEDS: CHOLECALCIFEROL (VITD3) 2,000 UNIT CAP/TAB PO SCH (12:56)
[2021-03-03] MEDS: ENOXAPARIN SOD 40 MG/0.4 ML SYRINGE SC SCH ×2 (12:57→22:00)
[2021-03-03] MEDS: PROPOFOL 100 ML IV SCH (13:33)
[2021-03-03] MEDS: NOREPINEPHRINE 8 MG/250ML KIT 250 ML IV SCH (13:34)
[2021-03-03] MEDS: MIDAZOLAM DRIP 50 mg/50mL 50 ML IV SCH ×2 (13:35→21:17)
[2021-03-03] MEDS: fentaNYL Drip 2500mCg/250mlNS 250 ML IV SCH ×2 (13:38→20:07)
[2021-03-04] VITALS (96 sets, daily range): BP systolic 81–134; BP diastolic 39–87
[2021-03-04] MEDS: PROPOFOL 100 ML IV SCH ×2 (01:02→06:09)
[2021-03-04] MEDS: NOREPINEPHRINE 8 MG/250ML KIT 250 ML IV SCH (01:02)
[2021-03-04] MEDS: MIDAZOLAM DRIP 50 mg/50mL 50 ML IV SCH ×2 (03:05→20:43)
[2021-03-04] MEDS: fentaNYL Drip 2500mCg/250mlNS 250 ML IV SCH (03:45)
[2021-03-04 05:06] LABS: Potassium 4.3 mmol/L (3.5-5.1)
[2021-03-04 05:13] LABS: Albumin 2.5 g/dL (3.4-5.0); BUN/Creatinine Ratio 46.3; Basophils # (auto) 0.1 10 ^3/uL (0-0.2); Basophils % (auto) 0.3 % (0.0-2.0); Calcium 8.3 mg/dL (8.5-10.1); Eosinophils # (auto) 0 10 ^3/uL (0-0.8); Eosinophils % (auto) 0.1 % (0.0-7.0); Hematocrit 43.5 % (41.0-53.0); Hemoglobin 14.7 g/dL (13.5-17.5); Lymphocytes # (auto) 1.3 10 ^3/uL (0.4-5.4); Lymphocytes % (auto) 5.6 % (10.0-50.0); Mean Corpuscular Hemoglobin 31.8 pg (28.0-32.0); Mean Corpuscular Hgb Conc. 33.7 g/dL (32.0-36.0); Mean Corpuscular Volume 94.5 fL (80.0-100.0); Monocytes # (auto) 0.6 10 ^3/uL (0-1.3); Monocytes % (auto) 2.8 % (0.0-12.0); Neutrophils # (auto) 20.7 10 ^3/uL (1.6-8.6); Neutrophils % (auto) 91.2 % (37.0-80.0); Red Blood Cells 4.61 10^6/uL (4.5-5.90); Red Cell Distribution Width 13.3 % (11.8-14.3); Total Protein 6.2 g/dL (6.4-8.2); White Blood Cell 22.7 10^3/uL (4.4-10.8)
[2021-03-04] MEDS: SALINE 0.65 % NASAL SPRAY 45ML BOTTLE EACHNOSTRI SCH ×4 (05:43→22:00)
[2021-03-04] MEDS: PIPERACILLIN-TAZOB 3.375GM 100 ML IV SCH ×5 (05:51→23:32)
[2021-03-04] MEDS: Ensure HIGH Protein Chocolate 8oz Bottle PO SCH ×3 (08:00→17:40)
[2021-03-04 09:50] LABS: INR 1.1 (0.9-1.15); Partial Thromboplastin Time 26.1 sec (23.6-33.0)
[2021-03-04] MEDS: PROPRANOLOL HCL 20 MG TAB PO SCH ×2 (10:00→22:00)
[2021-03-04] MEDS: DexAMETHasone SOD PHOS 10MG/1ML VIAL INJ IV SCH (10:00)
[2021-03-04] MEDS: ASPirin 81 mg TAB PO SCH (10:34)
[2021-03-04] MEDS: FUROSEMIDE 20 MG/2 ML VIAL IV SCH (10:34)
[2021-03-04] MEDS: ZINC SULFATE 220mg CAP or TAB PO SCH (10:34)
[2021-03-04] MEDS: ASCORBIC ACID 1,000 MG TAB PO SCH (10:35)
[2021-03-04] MEDS: FLORASTOR (S. BOULARDII) 250 MG CAP PO SCH (10:35)
[2021-03-04] MEDS: CHOLECALCIFEROL (VITD3) 2,000 UNIT CAP/TAB PO SCH (10:35)
[2021-03-04] MEDS: ENOXAPARIN SOD 40 MG/0.4 ML SYRINGE SC SCH ×2 (10:36→22:00)
[2021-03-04] MEDS: SODIUM BICARBONATE 50ML VIAL 75 ML in D5W 5% 1,000 ML IV SCH ×2 (14:13→22:15)
[2021-03-04] MEDS ORDERED: Jevity 1.2 Cal/Fiber 1 Liter GT SCH (17:45)
[2021-03-05] VITALS (74 sets, daily range): BP systolic 78–165; BP diastolic 18–95
[2021-03-05] MEDS: MIDAZOLAM DRIP 50 mg/50mL 50 ML IV SCH (01:11)
[2021-03-05] MEDS: fentaNYL Drip 2500mCg/250mlNS 250 ML IV SCH ×3 (01:50→21:02)
[2021-03-05] MEDS: DOPamine 1600MCG/ML D5W 250 ML IV SCH ×2 (04:30→16:50)
[2021-03-05 04:54] LABS: Basophils # (auto) 0 10 ^3/uL (0-0.2); Basophils % (auto) 0.1 % (0.0-2.0); Eosinophils # (auto) 0 10 ^3/uL (0-0.8); Hematocrit 38.6 % (41.0-53.0); Hemoglobin 13.2 g/dL (13.5-17.5); Lymphocytes # (auto) 1.1 10 ^3/uL (0.4-5.4); Lymphocytes % (auto) 6.4 % (10.0-50.0); Mean Corpuscular Hemoglobin 32.1 pg (28.0-32.0); Mean Corpuscular Hgb Conc. 34.3 g/dL (32.0-36.0); Mean Corpuscular Volume 93.6 fL (80.0-100.0); Monocytes # (auto) 0.7 10 ^3/uL (0-1.3); Monocytes % (auto) 4.1 % (0.0-12.0); Neutrophils # (auto) 14.8 10 ^3/uL (1.6-8.6); Neutrophils % (auto) 89.4 % (37.0-80.0); Nucleated Red Blood Cells % 0.1 %; Red Blood Cells 4.13 10^6/uL (4.5-5.90); Red Cell Distribution Width 13.2 % (11.8-14.3); White Blood Cell 16.6 10^3/uL (4.4-10.8)
[2021-03-05 05:08] LABS: Sodium Urine < 5 mmol/L (40-220)
[2021-03-05 05:09] LABS: Albumin 2.2 g/dL (3.4-5.0); BUN/Creatinine Ratio 42.7; Calcium 7.8 mg/dL (8.5-10.1); Magnesium 3.1 mg/dL (1.6-2.6); Potassium 4.1 mmol/L (3.5-5.1)
[2021-03-05 05:11] LABS: Creatinine, Urine 87 mg/dL (30.0-125.0)
[2021-03-05 05:14] LABS: Bilirubin, Total 0.6 mg/dL (0.2-1.0); Total Protein 5.4 g/dL (6.4-8.2)
[2021-03-05 05:57] LABS: Urine Bacteria NONE SEEN /hpf (None Seen); Urine Blood 2+ /uL (Negative); Urine Hyaline Cast FEW /lpf (0 - 2); Urine Specific Gravity 1.028 (1.001-1.035); Urine WBC 2 /hpf (0 - 3)
[2021-03-05] MEDS: SALINE 0.65 % NASAL SPRAY 45ML BOTTLE EACHNOSTRI SCH ×4 (06:00→22:00)
[2021-03-05] MEDS: PIPERACILLIN-TAZOB 3.375GM 100 ML IV SCH ×3 (06:24→17:55)
[2021-03-05] MEDS: PROPOFOL 100 ML IV SCH ×2 (06:49→23:03)
[2021-03-05] MEDS: Ensure HIGH Protein Chocolate 8oz Bottle PO SCH ×3 (08:00→18:00)
[2021-03-05] MEDS: NOREPINEPHRINE 8 MG/250ML KIT 250 ML IV SCH (09:17)
[2021-03-05] MEDS: DexAMETHasone SOD PHOS 10MG/1ML VIAL INJ IV SCH (09:57)
[2021-03-05] MEDS: FUROSEMIDE 20 MG/2 ML VIAL IV SCH (09:57)
[2021-03-05] MEDS: ASPirin 81 mg TAB PO SCH (09:57)
[2021-03-05] MEDS: CHOLECALCIFEROL (VITD3) 2,000 UNIT CAP/TAB PO SCH (09:58)
[2021-03-05] MEDS: ASCORBIC ACID 1,000 MG TAB PO SCH (09:58)
[2021-03-05] MEDS: PROPRANOLOL HCL 20 MG TAB PO SCH ×2 (09:58→22:00)
[2021-03-05] MEDS: FLORASTOR (S. BOULARDII) 250 MG CAP PO SCH (09:58)
[2021-03-05] MEDS: ENOXAPARIN SOD 40 MG/0.4 ML SYRINGE SC SCH ×2 (09:59→22:00)
[2021-03-05] MEDS: ZINC SULFATE 220mg CAP or TAB PO SCH (10:15)
[2021-03-05] MEDS: ACETAMINOPHEN 325 MG TAB PO PRN (12:30)
[2021-03-05] MEDS: SODIUM BICARBONATE 50ML VIAL 75 ML in D5W 5% 1,000 ML IV SCH ×2 (14:10→19:45)
[2021-03-06] VITALS (83 sets, daily range): BP systolic 78–147; BP diastolic 42–96
[2021-03-06] MEDS: NOREPINEPHRINE 8 MG/250ML KIT 250 ML IV SCH (01:46)
[2021-03-06] MEDS: PROPOFOL 100 ML IV SCH ×2 (01:47→11:02)
[2021-03-06] MEDS: fentaNYL Drip 2500mCg/250mlNS 250 ML IV SCH ×2 (03:35→20:29)
[2021-03-06] MEDS: DOPamine 1600MCG/ML D5W 250 ML IV SCH ×2 (05:14→18:18)
[2021-03-06] MEDS: SALINE 0.65 % NASAL SPRAY 45ML BOTTLE EACHNOSTRI SCH ×4 (05:56→22:00)
[2021-03-06] MEDS: PIPERACILLIN-TAZOB 3.375GM 100 ML IV SCH ×5 (05:57→23:30)
[2021-03-06] MEDS: SODIUM BICARBONATE 50ML VIAL 75 ML in D5W 5% 1,000 ML IV SCH ×2 (06:41→16:00)
[2021-03-06] MEDS: Ensure HIGH Protein Chocolate 8oz Bottle PO SCH ×3 (08:00→18:00)
[2021-03-06] MEDS: ENOXAPARIN SOD 40 MG/0.4 ML SYRINGE SC SCH ×2 (10:00→22:00)
[2021-03-06] MEDS: PROPRANOLOL HCL 20 MG TAB PO SCH ×2 (11:18→22:00)
[2021-03-06] MEDS: ASCORBIC ACID 1,000 MG TAB PO SCH (11:18)
[2021-03-06] MEDS: CHOLECALCIFEROL (VITD3) 2,000 UNIT CAP/TAB PO SCH (11:19)
[2021-03-06] MEDS: FLORASTOR (S. BOULARDII) 250 MG CAP PO SCH (11:19)
[2021-03-06] MEDS: ZINC SULFATE 220mg CAP or TAB PO SCH (11:20)
[2021-03-06] MEDS: FUROSEMIDE 20 MG/2 ML VIAL IV SCH (11:20)
[2021-03-06] MEDS: ASPirin 81 mg TAB PO SCH (11:20)
[2021-03-06] MEDS: DexAMETHasone SOD PHOS 10MG/1ML VIAL INJ IV SCH (11:21)
[2021-03-06] MEDS: MIDAZOLAM DRIP 50 mg/50mL 50 ML IV SCH ×3 (12:05→20:29)
[2021-03-07] VITALS (96 sets, daily range): BP systolic 84–146; BP diastolic 46–80
[2021-03-07] MEDS: MIDAZOLAM DRIP 50 mg/50mL 50 ML IV SCH ×6 (00:08→22:09)
[2021-03-07] MEDS: fentaNYL Drip 2500mCg/250mlNS 250 ML IV SCH ×4 (03:45→22:02)
[2021-03-07] MEDS: SODIUM BICARBONATE 50ML VIAL 75 ML in D5W 5% 1,000 ML IV SCH ×3 (04:00→14:30)
[2021-03-07 04:20] LABS: Basophils # (auto) 0 10 ^3/uL (0-0.2); Eosinophils # (auto) 0 10 ^3/uL (0-0.8); Hematocrit 36.7 % (41.0-53.0); Hemoglobin 12.8 g/dL (13.5-17.5); Lymphocytes # (auto) 0.4 10 ^3/uL (0.4-5.4); Lymphocytes % (auto) 3.2 % (10.0-50.0); Mean Corpuscular Hemoglobin 32.6 pg (28.0-32.0); Mean Corpuscular Hgb Conc. 34.8 g/dL (32.0-36.0); Mean Corpuscular Volume 93.6 fL (80.0-100.0); Monocytes # (auto) 0.5 10 ^3/uL (0-1.3); Monocytes % (auto) 3.6 % (0.0-12.0); Neutrophils # (auto) 12.8 10 ^3/uL (1.6-8.6); Neutrophils % (auto) 93.2 % (37.0-80.0); Nucleated Red Blood Cells % 0.6 %; Red Blood Cells 3.92 10^6/uL (4.5-5.90); Red Cell Distribution Width 13.4 % (11.8-14.3); White Blood Cell 13.7 10^3/uL (4.4-10.8)
[2021-03-07 04:41] LABS: Albumin 2.3 g/dL (3.4-5.0); BUN/Creatinine Ratio 24.1; Bilirubin, Total 0.7 mg/dL (0.2-1.0); Calcium 7.7 mg/dL (8.5-10.1); Total Protein 5.5 g/dL (6.4-8.2)
[2021-03-07] MEDS: SALINE 0.65 % NASAL SPRAY 45ML BOTTLE EACHNOSTRI SCH ×2 (05:37→12:18)
[2021-03-07] MEDS: PIPERACILLIN-TAZOB 3.375GM 100 ML IV SCH ×3 (05:37→17:57)
[2021-03-07] MEDS: PROPOFOL 100 ML IV SCH ×3 (06:11→18:08)
[2021-03-07] MEDS: DOPamine 1600MCG/ML D5W 250 ML IV SCH ×2 (06:42→20:30)
[2021-03-07] MEDS: Ensure HIGH Protein Chocolate 8oz Bottle PO SCH ×2 (08:01→12:18)
[2021-03-07] MEDS: DexAMETHasone SOD PHOS 10MG/1ML VIAL INJ IV SCH (09:56)
[2021-03-07] MEDS: FUROSEMIDE 20 MG/2 ML VIAL IV SCH (09:56)
[2021-03-07] MEDS: ASPirin 81 mg TAB PO SCH (09:56)
[2021-03-07] MEDS: FLORASTOR (S. BOULARDII) 250 MG CAP PO SCH (09:56)
[2021-03-07] MEDS: ZINC SULFATE 220mg CAP or TAB PO SCH (09:56)
[2021-03-07] MEDS: PROPRANOLOL HCL 20 MG TAB PO SCH (09:57)
[2021-03-07] MEDS: ENOXAPARIN SOD 40 MG/0.4 ML SYRINGE SC SCH (09:57)
[2021-03-07] MEDS: CHOLECALCIFEROL (VITD3) 2,000 UNIT CAP/TAB PO SCH (09:57)
[2021-03-07] MEDS: ASCORBIC ACID 1,000 MG TAB PO SCH (09:57)
[2021-03-07] MEDS: NOREPINEPHRINE 8 MG/250ML KIT 250 ML IV SCH ×2 (12:45→22:04)
[2021-03-07] MEDS ORDERED: DEXTROSE (50%) 50ML SYRG IV PRN (14:30)
[2021-03-07] MEDS: ACCU-CHEK COMFORT CURVE STRIP VI SCH (17:41)
[2021-03-07] MEDS: InsuLIN REG 1unit/0.01ml Soln (100units/ml) SC SCH (17:57)
[2021-03-08] VITALS (88 sets, daily range): BP systolic 78–147; BP diastolic 40–84
[2021-03-08] MEDS: ACCU-CHEK COMFORT CURVE STRIP VI SCH ×5 (00:14→23:59)
[2021-03-08] MEDS: PIPERACILLIN-TAZOB 3.375GM 100 ML IV SCH ×5 (00:14→23:59)
[2021-03-08] MEDS: InsuLIN REG 1unit/0.01ml Soln (100units/ml) SC SCH ×4 (00:16→18:14)
[2021-03-08] MEDS: PROPOFOL 100 ML IV SCH ×4 (02:24→18:13)
[2021-03-08] MEDS: MIDAZOLAM DRIP 50 mg/50mL 50 ML IV SCH ×6 (02:24→20:45)
[2021-03-08] MEDS: DOPamine 1600MCG/ML D5W 250 ML IV SCH ×2 (04:06→23:30)
[2021-03-08] MEDS: fentaNYL Drip 2500mCg/250mlNS 250 ML IV SCH ×2 (05:59→14:09)
[2021-03-08 06:01] LABS: Hematocrit 35.8 % (41.0-53.0); Hemoglobin 12.3 g/dL (13.5-17.5); Mean Corpuscular Hemoglobin 32.1 pg (28.0-32.0); Mean Corpuscular Hgb Conc. 34.4 g/dL (32.0-36.0); Mean Corpuscular Volume 93.3 fL (80.0-100.0); Red Blood Cells 3.83 10^6/uL (4.5-5.90); Red Cell Distribution Width 13.5 % (11.8-14.3); White Blood Cell 18.5 10^3/uL (4.4-10.8)
[2021-03-08 06:14] LABS: Basophils % (manual) 0 (0.0-2.0); Blast Cells 0; Eosinophils % (manual) 0 (0-7); Metamyelocytes % 0; Myelocytes % 0; Promyelocytes % 0; Reactive Lymphocytes 0
[2021-03-08 06:19] LABS: BUN/Creatinine Ratio 28.9; Potassium 4.2 mmol/L (3.5-5.1)
[2021-03-08] MEDS: SODIUM BICARBONATE 50ML VIAL 75 ML in D5W 5% 1,000 ML IV SCH ×4 (06:51→13:39)
[2021-03-08] MEDS: ZINC SULFATE 220mg CAP or TAB PO SCH (09:26)
[2021-03-08] MEDS: DexAMETHasone SOD PHOS 10MG/1ML VIAL INJ IV SCH (09:26)
[2021-03-08] MEDS: FLORASTOR (S. BOULARDII) 250 MG CAP PO SCH (09:27)
[2021-03-08] MEDS: CHOLECALCIFEROL (VITD3) 2,000 UNIT CAP/TAB PO SCH (09:27)
[2021-03-08] MEDS: ENOXAPARIN SOD 40 MG/0.4 ML SYRINGE SC SCH (09:27)
[2021-03-08 10:03] LABS: Band Neutrophils % (manual) 6; Lymphocytes % (manual) 3 (10.0-50.0); Monocytes % (manual) 4 (0-12)
[2021-03-08] MEDS: CLINDAMYCIN 600MG IV 50 ML IV SCH ×2 (14:00→23:30)
[2021-03-09] VITALS (85 sets, daily range): BP systolic 71–161; BP diastolic 33–85
[2021-03-09] MEDS: InsuLIN REG 1unit/0.01ml Soln (100units/ml) SC SCH ×5 (00:01→23:57)
[2021-03-09] MEDS: NOREPINEPHRINE 8 MG/250ML KIT 250 ML IV SCH (01:33)
[2021-03-09] MEDS: fentaNYL Drip 2500mCg/250mlNS 250 ML IV SCH ×3 (01:34→18:30)
[2021-03-09] MEDS: PROPOFOL 100 ML IV SCH ×3 (01:34→21:27)
[2021-03-09] MEDS: SODIUM BICARBONATE 50ML VIAL 75 ML in D5W 5% 1,000 ML IV SCH (01:35)
[2021-03-09] MEDS: MIDAZOLAM DRIP 50 mg/50mL 50 ML IV SCH ×7 (01:35→23:11)
[2021-03-09 04:18] LABS: Basophils # (auto) 0 10 ^3/uL (0-0.2); Basophils % (auto) 0.2 % (0.0-2.0); Eosinophils # (auto) 0 10 ^3/uL (0-0.8); Eosinophils % (auto) 0.2 % (0.0-7.0); Hematocrit 35.5 % (41.0-53.0); Lymphocytes # (auto) 0.6 10 ^3/uL (0.4-5.4); Mean Corpuscular Hemoglobin 31.7 pg (28.0-32.0); Mean Corpuscular Hgb Conc. 33.8 g/dL (32.0-36.0); Mean Corpuscular Volume 93.9 fL (80.0-100.0); Monocytes # (auto) 0.4 10 ^3/uL (0-1.3); Monocytes % (auto) 2.9 % (0.0-12.0); Neutrophils # (auto) 14.2 10 ^3/uL (1.6-8.6); Neutrophils % (auto) 92.7 % (37.0-80.0); Nucleated Red Blood Cells % 0.1 %; Red Blood Cells 3.78 10^6/uL (4.5-5.90); Red Cell Distribution Width 13.4 % (11.8-14.3); White Blood Cell 15.3 10^3/uL (4.4-10.8)
[2021-03-09 04:34] LABS: Potassium 4.1 mmol/L (3.5-5.1)
[2021-03-09 04:39] LABS: Albumin 2.2 g/dL (3.4-5.0); Bilirubin, Total 0.8 mg/dL (0.2-1.0); Calcium 7.7 mg/dL (8.5-10.1); Total Protein 5.1 g/dL (6.4-8.2)
[2021-03-09] MEDS: CLINDAMYCIN 600MG IV 50 ML IV SCH ×3 (05:51→21:21)
[2021-03-09] MEDS: ACCU-CHEK COMFORT CURVE STRIP VI SCH ×4 (05:52→23:56)
[2021-03-09] MEDS: PIPERACILLIN-TAZOB 3.375GM 100 ML IV SCH ×4 (05:52→23:56)
[2021-03-09] MEDS: FLORASTOR (S. BOULARDII) 250 MG CAP PO SCH (09:45)
[2021-03-09] MEDS: DexAMETHasone SOD PHOS 10MG/1ML VIAL INJ IV SCH (09:45)
[2021-03-09] MEDS: ZINC SULFATE 220mg CAP or TAB PO SCH (09:45)
[2021-03-09] MEDS: ENOXAPARIN SOD 40 MG/0.4 ML SYRINGE SC SCH (09:45)
[2021-03-09] MEDS: CHOLECALCIFEROL (VITD3) 2,000 UNIT CAP/TAB PO SCH (09:45)
[2021-03-09] MEDS: DOPamine 1600MCG/ML D5W 250 ML IV SCH (10:54)
[2021-03-09 19:03] LABS: INR 0.99 (0.9-1.15); Partial Thromboplastin Time 23.9 sec (23.6-33.0)
[2021-03-10] VITALS (97 sets, daily range): BP systolic 86–180; BP diastolic 47–84
[2021-03-10] MEDS: MIDAZOLAM DRIP 50 mg/50mL 50 ML IV SCH ×5 (01:55→22:18)
[2021-03-10] MEDS: DOPamine 1600MCG/ML D5W 250 ML IV SCH ×2 (02:17→12:30)
[2021-03-10] MEDS: PROPOFOL 100 ML IV SCH ×3 (04:30→18:32)
[2021-03-10] MEDS: fentaNYL Drip 2500mCg/250mlNS 250 ML IV SCH ×2 (04:32→12:46)
[2021-03-10] MEDS: CLINDAMYCIN 600MG IV 50 ML IV SCH ×2 (05:10→14:13)
[2021-03-10] MEDS: ACCU-CHEK COMFORT CURVE STRIP VI SCH ×3 (06:04→17:26)
[2021-03-10] MEDS: PIPERACILLIN-TAZOB 3.375GM 100 ML IV SCH ×3 (06:04→17:36)
[2021-03-10] MEDS: InsuLIN REG 1unit/0.01ml Soln (100units/ml) SC SCH ×3 (06:05→17:26)
[2021-03-10] MEDS: SODIUM BICARBONATE 50ML VIAL 75 ML in D5W 5% 1,000 ML IV SCH (07:00)
[2021-03-10] MEDS: DexAMETHasone SOD PHOS 10MG/1ML VIAL INJ IV SCH (10:05)
[2021-03-10] MEDS: ENOXAPARIN SOD 40 MG/0.4 ML SYRINGE SC SCH (10:05)
[2021-03-10] MEDS: FLORASTOR (S. BOULARDII) 250 MG CAP PO SCH (10:05)
[2021-03-10] MEDS: ZINC SULFATE 220mg CAP or TAB PO SCH (10:05)
[2021-03-10] MEDS: CHOLECALCIFEROL (VITD3) 2,000 UNIT CAP/TAB PO SCH (10:05)
[2021-03-10] MEDS: NOREPINEPHRINE 8 MG/250ML KIT 250 ML IV SCH (12:45)
[2021-03-10] MEDS ORDERED: LIDOCAINE 1% (LOCAL ANESTH.) PF 5ml SDV ID ONE (17:15)
[2021-03-10] MEDS: SODIUM CHLOR 0.9% PF (SALINE LOCK) 10ML VIAL/SYR IV SCH (22:09)
[2021-03-11] VITALS (98 sets, daily range): BP systolic 74–165; BP diastolic 44–84
[2021-03-11] MEDS: ACCU-CHEK COMFORT CURVE STRIP VI SCH ×4 (00:14→18:25)
[2021-03-11] MEDS: PIPERACILLIN-TAZOB 3.375GM 100 ML IV SCH ×4 (00:14→18:05)
[2021-03-11] MEDS: PROPOFOL 100 ML IV SCH ×4 (00:16→20:52)
[2021-03-11] MEDS: InsuLIN REG 1unit/0.01ml Soln (100units/ml) SC SCH ×4 (00:18→18:26)
[2021-03-11] MEDS: fentaNYL Drip 2500mCg/250mlNS 250 ML IV SCH ×4 (00:21→22:44)
[2021-03-11] MEDS: MIDAZOLAM DRIP 50 mg/50mL 50 ML IV SCH ×6 (01:54→20:53)
[2021-03-11] MEDS: DOPamine 1600MCG/ML D5W 250 ML IV SCH ×2 (03:44→13:53)
[2021-03-11] MEDS: SODIUM BICARBONATE 50ML VIAL 75 ML in D5W 5% 1,000 ML IV SCH (03:52)
[2021-03-11 06:04] LABS: Hematocrit 27.5 % (41.0-53.0)
[2021-03-11 06:06] LABS: Hemoglobin 9.9 g/dL (13.5-17.5); Mean Corpuscular Hemoglobin 34.7 pg (28.0-32.0); Mean Corpuscular Volume 96.4 fL (80.0-100.0); Red Blood Cells 2.85 10^6/uL (4.5-5.90); Red Cell Distribution Width 14.2 % (11.8-14.3); White Blood Cell 8.3 10^3/uL (4.4-10.8)
[2021-03-11 06:30] LABS: Potassium 3.4 mmol/L (3.5-5.1)
[2021-03-11 06:49] LABS: Albumin 1.5 g/dL (3.4-5.0); Bilirubin, Total 0.9 mg/dL (0.2-1.0); Total Protein 3.9 g/dL (6.4-8.2)
[2021-03-11 06:55] LABS: Basophils % (manual) 0 (0.0-2.0); Blast Cells 0; Metamyelocytes % 0; Myelocytes % 0; Promyelocytes % 0; Reactive Lymphocytes 0
[2021-03-11 08:16] LABS: Band Neutrophils % (manual) 4; Eosinophils % (manual) 1 (0-7); Lymphocytes % (manual) 6 (10.0-50.0); Monocytes % (manual) 3 (0-12)
[2021-03-11] MEDS ORDERED: CALCIUM CHL 100MG/ML 500 MG in D5W 5% 100 ML IV ONE (09:30)
[2021-03-11] MEDS: DexAMETHasone SOD PHOS 10MG/1ML VIAL INJ IV SCH (10:00)
[2021-03-11] MEDS: CHOLECALCIFEROL (VITD3) 2,000 UNIT CAP/TAB PO SCH (10:00)
[2021-03-11] MEDS: ENOXAPARIN SOD 40 MG/0.4 ML SYRINGE SC SCH (10:00)
[2021-03-11] MEDS: SODIUM CHLOR 0.9% PF (SALINE LOCK) 10ML VIAL/SYR IV SCH ×2 (10:00→22:09)
[2021-03-11] MEDS: FLORASTOR (S. BOULARDII) 250 MG CAP PO SCH (10:00)
[2021-03-11] MEDS: ZINC SULFATE 220mg CAP or TAB PO SCH (10:00)
[2021-03-11] MEDS: NOREPINEPHRINE 8 MG/250ML KIT 250 ML IV SCH (12:45)
[2021-03-11] MEDS: METOCLOPRAMIDE HCL 5MG/ml INJ 2ml VIAL IV SCH (14:51)
[2021-03-12] VITALS (97 sets, daily range): BP systolic 81–145; BP diastolic 35–83
[2021-03-12] MEDS: METOCLOPRAMIDE HCL 5MG/ml INJ 2ml VIAL IV SCH ×4 (00:21→22:06)
[2021-03-12] MEDS: PIPERACILLIN-TAZOB 3.375GM 100 ML IV SCH ×4 (00:22→18:20)
[2021-03-12] MEDS: ACCU-CHEK COMFORT CURVE STRIP VI SCH ×4 (00:22→17:38)
[2021-03-12] MEDS: MIDAZOLAM DRIP 50 mg/50mL 50 ML IV SCH ×6 (00:23→22:12)
[2021-03-12] MEDS: DOPamine 1600MCG/ML D5W 250 ML IV SCH ×2 (04:25→15:42)
[2021-03-12] MEDS: PROPOFOL 100 ML IV SCH ×4 (04:27→22:13)
[2021-03-12] MEDS: InsuLIN REG 1unit/0.01ml Soln (100units/ml) SC SCH ×4 (05:53→17:45)
[2021-03-12] MEDS: ACETAMINOPHEN 325 MG TAB PO PRN (05:55)
[2021-03-12 06:33] LABS: Calcium 8.3 mg/dL (8.5-10.1)
[2021-03-12 06:36] LABS: Albumin 1.9 g/dL (3.4-5.0); BUN/Creatinine Ratio 30.4
[2021-03-12 06:38] LABS: Total Protein 5.3 g/dL (6.4-8.2)
[2021-03-12] MEDS: ENOXAPARIN SOD 40 MG/0.4 ML SYRINGE SC SCH (10:00)
[2021-03-12] MEDS: SODIUM CHLOR 0.9% PF (SALINE LOCK) 10ML VIAL/SYR IV SCH ×2 (10:00→22:06)
[2021-03-12] MEDS: CHOLECALCIFEROL (VITD3) 2,000 UNIT CAP/TAB PO SCH (10:00)
[2021-03-12] MEDS: ZINC SULFATE 220mg CAP or TAB PO SCH (10:00)
[2021-03-12] MEDS: FLORASTOR (S. BOULARDII) 250 MG CAP PO SCH (10:00)
[2021-03-12] MEDS: DexAMETHasone SOD PHOS 10MG/1ML VIAL INJ IV SCH (10:00)
[2021-03-12] MEDS: fentaNYL Drip 2500mCg/250mlNS 250 ML IV SCH ×2 (10:45→22:09)
[2021-03-12] MEDS: NOREPINEPHRINE 8 MG/250ML KIT 250 ML IV SCH ×2 (12:45→22:14)
[2021-03-13] VITALS (99 sets, daily range): BP systolic 91–127; BP diastolic 47–79
[2021-03-13] MEDS: PIPERACILLIN-TAZOB 3.375GM 100 ML IV SCH ×4 (01:14→18:08)
[2021-03-13] MEDS: InsuLIN REG 1unit/0.01ml Soln (100units/ml) SC SCH ×4 (01:15→18:00)
[2021-03-13] MEDS: PROPOFOL 100 ML IV SCH ×3 (03:54→22:03)
[2021-03-13] MEDS: MIDAZOLAM DRIP 50 mg/50mL 50 ML IV SCH ×4 (03:55→22:01)
[2021-03-13] MEDS: DOPamine 1600MCG/ML D5W 250 ML IV SCH ×2 (04:37→19:00)
[2021-03-13] MEDS: ACCU-CHEK COMFORT CURVE STRIP VI SCH ×4 (05:47→18:09)
[2021-03-13] MEDS: METOCLOPRAMIDE HCL 5MG/ml INJ 2ml VIAL IV SCH ×3 (05:47→22:00)
[2021-03-13] MEDS: fentaNYL Drip 2500mCg/250mlNS 250 ML IV SCH ×2 (09:26→22:02)
[2021-03-13] MEDS: CHOLECALCIFEROL (VITD3) 2,000 UNIT CAP/TAB PO SCH (09:54)
[2021-03-13] MEDS: SODIUM CHLOR 0.9% PF (SALINE LOCK) 10ML VIAL/SYR IV SCH ×2 (09:54→21:59)
[2021-03-13] MEDS: DexAMETHasone SOD PHOS 10MG/1ML VIAL INJ IV SCH (09:54)
[2021-03-13] MEDS: ZINC SULFATE 220mg CAP or TAB PO SCH (09:54)
[2021-03-13] MEDS: FLORASTOR (S. BOULARDII) 250 MG CAP PO SCH (09:54)
[2021-03-13] MEDS: ENOXAPARIN SOD 40 MG/0.4 ML SYRINGE SC SCH (09:54)
[2021-03-14] VITALS (98 sets, daily range): BP systolic 84–143; BP diastolic 49–80
[2021-03-14] MEDS: PIPERACILLIN-TAZOB 3.375GM 100 ML IV SCH ×4 (00:58→16:51)
[2021-03-14] MEDS: InsuLIN REG 1unit/0.01ml Soln (100units/ml) SC SCH ×4 (00:59→16:51)
[2021-03-14] MEDS: MIDAZOLAM DRIP 50 mg/50mL 50 ML IV SCH ×2 (04:26→22:54)
[2021-03-14] MEDS: ACCU-CHEK COMFORT CURVE STRIP VI SCH ×4 (06:00→16:51)
[2021-03-14 06:19] LABS: Basophils # (auto) 0 10 ^3/uL (0-0.2); Basophils % (auto) 0.2 % (0.0-2.0); Eosinophils # (auto) 0 10 ^3/uL (0-0.8); Eosinophils % (auto) 0.2 % (0.0-7.0); Hematocrit 30.6 % (41.0-53.0); Lymphocytes # (auto) 0.4 10 ^3/uL (0.4-5.4); Lymphocytes % (auto) 5.4 % (10.0-50.0); Mean Corpuscular Hemoglobin 33.5 pg (28.0-32.0); Mean Corpuscular Hgb Conc. 35.8 g/dL (32.0-36.0); Mean Corpuscular Volume 93.6 fL (80.0-100.0); Monocytes # (auto) 0.2 10 ^3/uL (0-1.3); Monocytes % (auto) 2.7 % (0.0-12.0); Neutrophils # (auto) 7.1 10 ^3/uL (1.6-8.6); Neutrophils % (auto) 91.5 % (37.0-80.0); Nucleated Red Blood Cells % 0.1 %; Red Blood Cells 3.27 10^6/uL (4.5-5.90); Red Cell Distribution Width 14.5 % (11.8-14.3); White Blood Cell 7.8 10^3/uL (4.4-10.8)
[2021-03-14] MEDS: METOCLOPRAMIDE HCL 5MG/ml INJ 2ml VIAL IV SCH ×3 (06:27→22:29)
[2021-03-14 06:28] LABS: Potassium 3.9 mmol/L (3.5-5.1)
[2021-03-14] MEDS: DOPamine 1600MCG/ML D5W 250 ML IV SCH ×2 (06:31→14:45)
[2021-03-14 06:36] LABS: BUN/Creatinine Ratio 46.5; Calcium 7.1 mg/dL (8.5-10.1); Magnesium 3.2 mg/dL (1.6-2.6)
[2021-03-14] MEDS: SODIUM CHLOR 0.9% PF (SALINE LOCK) 10ML VIAL/SYR IV SCH ×2 (07:35→22:29)
[2021-03-14] MEDS: ENOXAPARIN SOD 40 MG/0.4 ML SYRINGE SC SCH (10:43)
[2021-03-14] MEDS: FLORASTOR (S. BOULARDII) 250 MG CAP PO SCH (10:43)
[2021-03-14] MEDS: ZINC SULFATE 220mg CAP or TAB PO SCH (10:43)
[2021-03-14] MEDS: DexAMETHasone SOD PHOS 10MG/1ML VIAL INJ IV SCH (10:43)
[2021-03-14] MEDS: CHOLECALCIFEROL (VITD3) 2,000 UNIT CAP/TAB PO SCH (10:43)
[2021-03-14] MEDS: NOREPINEPHRINE 8 MG/250ML KIT 250 ML IV SCH (10:49)
[2021-03-14] MEDS: fentaNYL Drip 2500mCg/250mlNS 250 ML IV SCH ×2 (11:00→23:50)
[2021-03-14] MEDS: ACETAMINOPHEN 325 MG TAB PO PRN (16:51)
[2021-03-14] MEDS: PROPOFOL 100 ML IV SCH (22:31)
[2021-03-15] VITALS (100 sets, daily range): BP systolic 85–140; BP diastolic 48–84
[2021-03-15] MEDS: PIPERACILLIN-TAZOB 3.375GM 100 ML IV SCH ×5 (01:32→23:38)
[2021-03-15] MEDS: MIDAZOLAM DRIP 50 mg/50mL 50 ML IV SCH (04:23)
[2021-03-15] MEDS: PROPOFOL 100 ML IV SCH (04:24)
[2021-03-15] MEDS: ACCU-CHEK COMFORT CURVE STRIP VI SCH ×5 (05:49→23:39)
[2021-03-15] MEDS: METOCLOPRAMIDE HCL 5MG/ml INJ 2ml VIAL IV SCH ×3 (05:49→22:00)
[2021-03-15] MEDS: InsuLIN REG 1unit/0.01ml Soln (100units/ml) SC SCH ×5 (05:49→23:42)
[2021-03-15] MEDS: DOPamine 1600MCG/ML D5W 250 ML IV SCH ×2 (07:42→11:00)
[2021-03-15] MEDS: SODIUM CHLOR 0.9% PF (SALINE LOCK) 10ML VIAL/SYR IV SCH ×2 (07:46→22:00)
[2021-03-15] MEDS: NOREPINEPHRINE 8 MG/250ML KIT 250 ML IV SCH (07:47)
[2021-03-15] MEDS: DexAMETHasone SOD PHOS 10MG/1ML VIAL INJ IV SCH (08:43)
[2021-03-15] MEDS: ZINC SULFATE 220mg CAP or TAB PO SCH (08:43)
[2021-03-15] MEDS: CHOLECALCIFEROL (VITD3) 2,000 UNIT CAP/TAB PO SCH (08:43)
[2021-03-15] MEDS: FLORASTOR (S. BOULARDII) 250 MG CAP PO SCH (08:43)
[2021-03-15] MEDS: ENOXAPARIN SOD 40 MG/0.4 ML SYRINGE SC SCH (08:43)
[2021-03-15] MEDS ORDERED: ROCURONIUM 10MG/ML 10ML VIAL IV ONE ×2 (12:00→12:03)
[2021-03-15] MEDS ORDERED: FUROSEMIDE 40 MG/4 ML VIAL ONE (12:12)
[2021-03-15] MEDS ORDERED: FUROSEMIDE 40 MG/4 ML VIAL IV ONE (12:30)
[2021-03-15] MEDS: ROCURONIUM BROMIDE 1,000 MG in D5W 5% 150 ML IV SCH (12:30)
[2021-03-15] MEDS: ACETAMINOPHEN 325 MG TAB PO PRN (15:39)
[2021-03-16] VITALS (80 sets, daily range): BP systolic 95–148; BP diastolic 55–92
[2021-03-16 02:16] LABS: Basophils # (auto) 0 10 ^3/uL (0-0.2); Basophils % (auto) 0.3 % (0.0-2.0); Eosinophils # (auto) 0.1 10 ^3/uL (0-0.8); Eosinophils % (auto) 1.2 % (0.0-7.0); Hematocrit 30.8 % (41.0-53.0); Hemoglobin 11.8 g/dL (13.5-17.5); Lymphocytes # (auto) 0.4 10 ^3/uL (0.4-5.4); Lymphocytes % (auto) 6.3 % (10.0-50.0); Mean Corpuscular Volume 93.9 fL (80.0-100.0); Monocytes # (auto) 0.3 10 ^3/uL (0-1.3); Monocytes % (auto) 4.2 % (0.0-12.0); Nucleated Red Blood Cells % 0.2 %; Red Blood Cells 3.28 10^6/uL (4.5-5.90); Red Cell Distribution Width 14.4 % (11.8-14.3); White Blood Cell 6.8 10^3/uL (4.4-10.8)
[2021-03-16 02:19] LABS: Mean Corpuscular Hgb Conc. 38.3 g/dL (32.0-36.0)
[2021-03-16] MEDS: fentaNYL Drip 2500mCg/250mlNS 250 ML IV SCH (03:45)
[2021-03-16 04:47] LABS: BUN/Creatinine Ratio 45.5; Calcium 7.9 mg/dL (8.5-10.1); Potassium 3.3 mmol/L (3.5-5.1)
[2021-03-16] MEDS: InsuLIN REG 1unit/0.01ml Soln (100units/ml) SC SCH ×3 (06:00→18:21)
[2021-03-16] MEDS: METOCLOPRAMIDE HCL 5MG/ml INJ 2ml VIAL IV SCH ×3 (06:00→22:01)
[2021-03-16] MEDS: ACCU-CHEK COMFORT CURVE STRIP VI SCH ×3 (06:00→18:21)
[2021-03-16] MEDS: PIPERACILLIN-TAZOB 3.375GM 100 ML IV SCH ×3 (06:00→18:20)
[2021-03-16] MEDS: ROCURONIUM BROMIDE 1,000 MG in D5W 5% 150 ML IV SCH (08:32)
[2021-03-16] MEDS: DOPamine 1600MCG/ML D5W 250 ML IV SCH ×2 (09:18→21:30)
[2021-03-16] MEDS: FLORASTOR (S. BOULARDII) 250 MG CAP PO SCH (10:00)
[2021-03-16] MEDS: SODIUM CHLOR 0.9% PF (SALINE LOCK) 10ML VIAL/SYR IV SCH ×2 (10:00→21:30)
[2021-03-16] MEDS: CHOLECALCIFEROL (VITD3) 2,000 UNIT CAP/TAB PO SCH (10:00)
[2021-03-16] MEDS: ENOXAPARIN SOD 40 MG/0.4 ML SYRINGE SC SCH (10:00)
[2021-03-16] MEDS: DexAMETHasone SOD PHOS 10MG/1ML VIAL INJ IV SCH (10:00)
[2021-03-16] MEDS: ZINC SULFATE 220mg CAP or TAB PO SCH (10:00)
[2021-03-16] MEDS ORDERED: POTASSIUM CHLORIDE 20 MEQ, LIDOCAINE 1% (LOCAL ANESTH.) 2 ML in SODIUM CHL 0.9% 100 ML IV ONE (12:45)
[2021-03-16] MEDS ORDERED: POTASSIUM EFFERVESENT TAB 25 MEQ PO ONE (12:45)
[2021-03-16] MEDS: MIDAZOLAM DRIP 50 mg/50mL 50 ML IV SCH (12:47)
[2021-03-16] MEDS: PROPOFOL 100 ML IV SCH ×2 (12:48→13:57)
[2021-03-16] MEDS: NOREPINEPHRINE 8 MG/250ML KIT 250 ML IV SCH (12:49)
[2021-03-16] MEDS ORDERED: POTASSIUM CHL 20MEQ/50ML 50 ML IV ONE (14:00)
[2021-03-17] VITALS (28 sets, daily range): BP systolic 113–168; BP diastolic 21–59
[2021-03-17 02:08] LABS: Basophils # (auto) 0 10 ^3/uL (0-0.2); Eosinophils # (auto) 0 10 ^3/uL (0-0.8); Lymphocytes # (auto) 0.4 10 ^3/uL (0.4-5.4); Lymphocytes % (auto) 6.3 % (10.0-50.0); Monocytes # (auto) 0.2 10 ^3/uL (0-1.3)
[2021-03-17 02:11] LABS: Basophils % (auto) 0.3 % (0.0-2.0); Eosinophils % (auto) 0.2 % (0.0-7.0); Hematocrit 30.3 % (41.0-53.0); Hemoglobin 10.3 g/dL (13.5-17.5); Mean Corpuscular Hemoglobin 31.7 pg (28.0-32.0); Mean Corpuscular Hgb Conc. 33.9 g/dL (32.0-36.0); Mean Corpuscular Volume 93.5 fL (80.0-100.0); Monocytes % (auto) 3.2 % (0.0-12.0); Neutrophils # (auto) 5.7 10 ^3/uL (1.6-8.6); Nucleated Red Blood Cells % 0.1 %; Red Blood Cells 3.24 10^6/uL (4.5-5.90); Red Cell Distribution Width 14.2 % (11.8-14.3); White Blood Cell 6.4 10^3/uL (4.4-10.8)
[2021-03-17 02:25] LABS: Potassium 4.2 mmol/L (3.5-5.1)
[2021-03-17 02:29] LABS: Albumin 1.9 g/dL (3.4-5.0); BUN/Creatinine Ratio 31.9; Calcium 8.2 mg/dL (8.5-10.1)
[2021-03-17 02:32] LABS: Bilirubin, Total 0.8 mg/dL (0.2-1.0); Total Protein 5.5 g/dL (6.4-8.2)
[2021-03-17] MEDS: fentaNYL Drip 2500mCg/250mlNS 250 ML IV SCH ×2 (03:45→10:21)
[2021-03-17] MEDS: ROCURONIUM BROMIDE 1,000 MG in D5W 5% 150 ML IV SCH (04:34)
[2021-03-17] MEDS: METOCLOPRAMIDE HCL 5MG/ml INJ 2ml VIAL IV SCH ×3 (05:19→22:00)
[2021-03-17] MEDS: PIPERACILLIN-TAZOB 3.375GM 100 ML IV SCH ×4 (05:19→18:00)
[2021-03-17] MEDS: InsuLIN REG 1unit/0.01ml Soln (100units/ml) SC SCH ×5 (05:57→23:15)
[2021-03-17] MEDS: ACCU-CHEK COMFORT CURVE STRIP VI SCH ×5 (05:59→23:15)
[2021-03-17] MEDS: MIDAZOLAM DRIP 50 mg/50mL 50 ML IV SCH ×3 (08:21→16:40)
[2021-03-17] MEDS: PROPOFOL 100 ML IV SCH ×3 (08:23→16:41)
[2021-03-17] MEDS: CHOLECALCIFEROL (VITD3) 2,000 UNIT CAP/TAB PO SCH (09:31)
[2021-03-17] MEDS: FLORASTOR (S. BOULARDII) 250 MG CAP PO SCH (09:31)
[2021-03-17] MEDS: SODIUM CHLOR 0.9% PF (SALINE LOCK) 10ML VIAL/SYR IV SCH ×2 (09:32→22:00)
[2021-03-17] MEDS: ENOXAPARIN SOD 40 MG/0.4 ML SYRINGE SC SCH (09:32)
[2021-03-17] MEDS: ZINC SULFATE 220mg CAP or TAB PO SCH (09:32)
[2021-03-17] MEDS: DexAMETHasone SOD PHOS 10MG/1ML VIAL INJ IV SCH (09:33)
[2021-03-17] MEDS: NOREPINEPHRINE 8 MG/250ML KIT 250 ML IV SCH (12:45)
[2021-03-17] MEDS ORDERED: PANTOPRAZOLE 40 MG/10 ML VIAL INJ IV ONE (13:30)
[2021-03-17] MEDS: DOPamine 1600MCG/ML D5W 250 ML IV SCH ×2 (16:43→22:12)
[2021-03-18] VITALS (31 sets, daily range): BP systolic 83–203; BP diastolic 21–142
[2021-03-18] MEDS: ROCURONIUM BROMIDE 1,000 MG in D5W 5% 150 ML IV SCH (00:36)
[2021-03-18 02:25] LABS: Basophils # (auto) 0 10 ^3/uL (0-0.2); Hemoglobin 9.7 g/dL (13.5-17.5); Monocytes # (auto) 0.2 10 ^3/uL (0-1.3); Nucleated Red Blood Cells % 0.1 %; Red Cell Distribution Width 14.3 % (11.8-14.3)
[2021-03-18 02:26] LABS: Basophils % (auto) 0.2 % (0.0-2.0); Eosinophils # (auto) 0 10 ^3/uL (0-0.8); Eosinophils % (auto) 0.2 % (0.0-7.0); Hematocrit 28.5 % (41.0-53.0); Lymphocytes # (auto) 0.6 10 ^3/uL (0.4-5.4); Mean Corpuscular Hemoglobin 31.9 pg (28.0-32.0); Mean Corpuscular Volume 93.9 fL (80.0-100.0); Monocytes % (auto) 3.1 % (0.0-12.0); Neutrophils # (auto) 5.8 10 ^3/uL (1.6-8.6); Neutrophils % (auto) 87.5 % (37.0-80.0); Red Blood Cells 3.03 10^6/uL (4.5-5.90); White Blood Cell 6.6 10^3/uL (4.4-10.8)
[2021-03-18 02:40] LABS: Albumin 1.9 g/dL (3.4-5.0); BUN/Creatinine Ratio 41.7; Potassium 3.8 mmol/L (3.5-5.1)
[2021-03-18 02:43] LABS: Bilirubin, Total 0.8 mg/dL (0.2-1.0); Total Protein 5.2 g/dL (6.4-8.2)
[2021-03-18] MEDS: ACCU-CHEK COMFORT CURVE STRIP VI SCH (05:47)
[2021-03-18] MEDS: PIPERACILLIN-TAZOB 3.375GM 100 ML IV SCH ×2 (05:50)
[2021-03-18] MEDS: METOCLOPRAMIDE HCL 5MG/ml INJ 2ml VIAL IV SCH (05:50)
[2021-03-18] MEDS: InsuLIN REG 1unit/0.01ml Soln (100units/ml) SC SCH (05:53)
[2021-03-18] MEDS ORDERED: PANTOPRAZOLE 40 MG/10 ML VIAL INJ IV SCH (10:00)
[2021-03-18] MEDS: DexAMETHasone SOD PHOS 10MG/1ML VIAL INJ IV SCH (10:19)
[2021-03-18] MEDS: ZINC SULFATE 220mg CAP or TAB PO SCH (10:20)
[2021-03-18] MEDS: CHOLECALCIFEROL (VITD3) 2,000 UNIT CAP/TAB PO SCH (10:20)
[2021-03-18] MEDS: FLORASTOR (S. BOULARDII) 250 MG CAP PO SCH (10:20)
[2021-03-18] MEDS: ENOXAPARIN SOD 40 MG/0.4 ML SYRINGE SC SCH (10:20)
[2021-03-18] MEDS: SODIUM CHLOR 0.9% PF (SALINE LOCK) 10ML VIAL/SYR IV SCH ×2 (10:21→11:50)
[2021-03-18] MEDS: PROPOFOL 100 ML IV SCH (11:38)
[2021-03-18] MEDS: fentaNYL Drip 2500mCg/250mlNS 250 ML IV SCH (11:57)
[2021-03-18] MEDS: MIDAZOLAM DRIP 50 mg/50mL 50 ML IV SCH (12:27)
== END 2021-03-18 18:38 | DRG 870 ==
LOC: ER 13:01 → TELE 17:33 → TELE-EAST 20:30 → TELE-E-ADS 02-21 21:05 → TELE-EAST 02-23 12:43 → TELE-E-ADS 03-02 23:00 → ICU WEST 03-03 09:33
PROVIDERS: ADMIT Hospitalist; ATTEND Internal Medicine
PROC: XW033E5 Introduction of Remdesivir Anti-infective into Peripheral Vein, Percutaneous Approach, New Technology Group 5 (ICD-10-PCS; 2021-02-17)
PROC: 5A09357 Assistance with Respiratory Ventilation, Less than 24 Consecutive Hours, Continuous Positive Airway Pressure (ICD-10-PCS; 2021-02-17)
PROC: 5A1955Z Respiratory Ventilation, Greater than 96 Consecutive Hours (ICD-10-PCS; principal; 2021-03-03)
PROC: 0BH17EZ Insertion of Endotracheal Airway into Trachea, Via Natural or Artificial Opening (ICD-10-PCS; 2021-03-03)
PROC: 02HV33Z Insertion of Infusion Device into Superior Vena Cava, Percutaneous Approach (ICD-10-PCS; 2021-03-03)
PROC: 5A0935A Assistance with Respiratory Ventilation, Less than 24 Consecutive Hours, High Flow/Velocity Cannula (ICD-10-PCS; 2021-03-03)
DX: A41.89 Other specified sepsis (principal); U07.1 COVID-19; J12.82 Pneumonia due to coronavirus disease 2019; J96.01 Acute respiratory failure with hypoxia; N17.0 Acute kidney failure with tubular necrosis; R65.21 Severe sepsis with septic shock; E87.1 Hypo-osmolality and hyponatremia; D68.59 Other primary thrombophilia; R79.82 Elevated C-reactive protein (CRP); K75.81 Nonalcoholic steatohepatitis (NASH); R25.1 Tremor, unspecified; E87.8 Other disorders of electrolyte and fluid balance, not elsewhere classified; R79.89 Other specified abnormal findings of blood chemistry; D69.6 Thrombocytopenia, unspecified; E83.51 Hypocalcemia; Z66 Do not resuscitate; D89.839 Cytokine release syndrome, grade unspecified; E11.65 Type 2 diabetes mellitus with hyperglycemia; E78.5 Hyperlipidemia, unspecified; I10 Essential (primary) hypertension; E66.01 Morbid (severe) obesity due to excess calories; Z98.1 Arthrodesis status; Z23 Encounter for immunization; Z68.33 Body mass index [BMI] 33.0-33.9, adult
CPT/HCPCS: 36415; 36569; 36600; 71045; 71275; 76705; 80048; 80053; 80061; 80074; 80162; 80307; 81001; 82306; 82570; 82728; 82805; 82962; 83036; 83605; 83615; 83735; 83880; 83935; 84100; 84156; 84300; 84443; 84484; 84550; 85007; 85025; 85027; 85379; 85610; 85730; 86141; 87040; 87070; 87086; 87205; 87426; 93005; 93926; 94002; 94003; 94640; 94660; 96361; 96365; 96375; 97110; C9113; G0378; J0696; J1100; J2250; J2543; J2704; J3490; J7060; P9047